=== PATIENT | male | born 1955 | race Caucasian/White ===

== ENCOUNTER 2017-01-23 21:29 | Emergency (ER) | payer BC ==
[~2017-01-23] VITALS: Ht 167.6 cm; Wt 101.0 kg
[~2017-01-23 21:29] MED LIST: ASPI81TA28 PO; LEVO75TA PO; METO-478 PO; SIMV20TA2 PO
[2017-01-23 21:38] VITALS: Ht 167.6 cm; Wt 101.0 kg
[2017-01-23] MEDS ORDERED: MoRPHine SULFATE 4 MG/ML 1 ML CARP\\VIAL IV STA (21:38)
[2017-01-23] MEDS ORDERED: ONDANSETRON INJ 2 MG/ML 2 ML VIAL IV STA (21:38)
[2017-01-23] MEDS ORDERED: LEVO88TA PO (21:55)
[2017-01-23] MEDS ORDERED: METO-217 PO (21:55)
--- NOTE | 2017-01-23 21:55 | EMERGENCY ROOM VISIT NOTE ---
History Report prepared by Susanneibpadmini: Amado Alvarado Under the Supervision of: Dr. James Santoyo D.O. First contact with patient: 21:32 Chief Complaint: ARM PAIN Stated Complaint: L ARM PAIN History of Present Illness The patient is a 61 year old male who presents to the Emergency Room with complaints of constant left arm pain that began this afternoon at 1630, 5 hours prior to arrival. He describes the sensation as a sharp, shooting pain. The patient states that he was playing golf when the pain began. Per the nursing staff the patient had been drinking vodka while golfing and appeared to have become incontinent and urinated on himself. The patient's pain is worsened with movement, abduction of the shoulder. He denies any associated pain in the chest , neck or abdomen. He has no history of cardiac illness, or shoulder complications. The patient received Aspiring via EMS prior to arrival. Further HPI from the patient's friend reveals that he found the patient on the ground by the car after he had fallen. 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 A total of ten systems were reviewed and were otherwise negative. Past Medical & Surgical Medical Problems: (1) Hypertension (2) Kidney stone Family History FHx: heart disease Hypertension Social History Smoking Status: Never Smoker Alcohol Use: occasionally Marital Status: Housing Status: lives with significant other Current/Historical Medications Scheduled Aspirin (Aspirin Ec), 81 MG PO DAILY Levothyroxine Sodium (Synthroid), 88 MCG PO DAILY Metoprolol Succinate (Toprol Xl), 50 MG PO DAILY Simvastatin (Zocor), 20 MG PO QPM Allergies Coded Allergies: No Known Allergies (Unverified , 01/23/17) Physical Exam Vital Signs Date Time Temp Pulse Resp B/P (MAP) Pulse Ox O2 Delivery O2 Flow Rate FiO2 01/23/17 23:51 84 18 141/102 98 Nasal Cannula 6.0 01/23/17 23:51 36.7 81 20 145/92 97 Room Air 01/23/17 23:51 36.6 77 18 127/93 98 Room Air 01/23/17 23:21 93 Nasal Cannula 3.0 01/23/17 22:25 100 Room Air 01/23/17 21:57 78 01/23/17 21:38 36.9 77 18 141/102 97 Room Air Physical Exam GENERAL: Awake, alert, Patient is Moaning in pain. HENT: Normocephalic, atraumatic. Oropharynx unremarkable. Poor Dentition EYES: Normal conjunctiva. Sclera non-icteric. NECK: Supple. No nuchal rigidity. FROM. No JVD. RESPIRATORY: Clear to auscultation. CARDIAC: Regular rate, normal rhythm. Extremities warm and well perfused. Pulses equal. ABDOMEN: Soft, non-distended. No tenderness to palpation. No rebound or guarding. No masses. RECTAL: Deferred. MUSCULOSKELETAL: There is tenderness in the left shoulder. There is pain with abduction and palpation of the shoulder. No tenderness of the humerus or forearm. Patient is intact vascularly. Chest examination reveals no tenderness. The back is symmetrical on inspection without obvious abnormality. There is no CVA tenderness to palpation. No joint edema. LOWER EXTREMITIES: Calves are equal size bilaterally and non-tender. No edema. No discoloration. NEURO: Normal sensorium. No sensory or motor deficits noted. SKIN: No rash or jaundice noted. Medical Decision & Procedures ER Provider Diagnostic Interpretation: X ray results as stated below per my interpretation and radiologist interpretation. Other radiology results as stated below per my review and radiologist interpretation SINGLE VIEW CHEST CLINICAL HISTORY: Atypical chest pain. FINDINGS: An AP, portable, upright chest radiograph is compared to study dated 01/29/2013. The cardiomediastinal silhouette is unremarkable. There are low lung volumes with mild bibasilar opacities. No large pleural effusion or pneumothorax is seen. The bony thorax is grossly intact. Anterior left shoulder dislocation is noted. IMPRESSION: 1. There are low lung volumes with mild bibasilar opacities. This likely represents atelectasis. Clinical correlation will be required. 2. There is anterior dislocation of the left shoulder. Electronically signed by: Dmitry Saldaña M.D. 01/23/2017 10:53 PM Dictated Date/Time: 01/23/2017 10:52 PM LEFT SHOULDER 2 VIEWS CLINICAL HISTORY: Left shoulder pain. FINDINGS: 2 portable views of the left shoulder are obtained. No prior studies are available for comparison at the time of dictation. The skeletal structures are well mineralized. No fracture is clearly seen. There is anterior dislocation of the left shoulder. Mild productive degenerative change is noted at the acromioclavicular joint. Mild overlying soft tissue swelling is noted. The visualized left lung parenchyma appears clear. IMPRESSION: Findings are consistent with anterior dislocation of the left shoulder. No definite fracture is seen. Electronically signed by: Dmitry Saldaña M.D. 01/23/2017 10:54 PM Dictated Date/Time: 01/23/2017 10:53 PM Laboratory Results 01/23/17 21:15 Red Blood Count 4.81, Mean Corpuscular Volume 92.7, Mean Corpuscular Hemoglobin 31.8, Mean Corpuscular Hemoglobin Concent 34.3, Mean Platelet Volume 10.1, Neutrophils (%) (Auto) 88.7, Lymphocytes (%) (Auto) 6.1, Monocytes (%) (Auto) 4.5, Eosinophils (%) (Auto) 0.2, Basophils (%) (Auto) 0.1, Neutrophils # (Auto) 15.77, Lymphocytes # (Auto) 1.08, Monocytes # (Auto) 0.80, Eosinophils # (Auto) 0.04, Basophils # (Auto) 0.02 01/23/17 21:15 Test 01/23/17 21:15 01/23/17 21:52 White Blood Count 17.78 K/uL (4.8-10.8) Red Blood Count 4.81 M/uL (4.7-6.1) Hemoglobin 15.3 g/dL (14.0-18.0) Hematocrit 44.6 % (42-52) Mean Corpuscular Volume 92.7 fL (80-100) Mean Corpuscular Hemoglobin 31.8 pg (25-34) Mean Corpuscular Hemoglobin Concent 34.3 g/dl (32-36) Platelet Count 226 K/uL (130-400) Mean Platelet Volume 10.1 fL (7.4-10.4) Neutrophils (%) (Auto) 88.7 % Lymphocytes (%) (Auto) 6.1 % Monocytes (%) (Auto) 4.5 % Eosinophils (%) (Auto) 0.2 % Basophils (%) (Auto) 0.1 % Neutrophils # (Auto) 15.77 K/uL (1.4-6.5) Lymphocytes # (Auto) 1.08 K/uL (1.2-3.4) Monocytes # (Auto) 0.80 K/uL (0.11-0.59) Eosinophils # (Auto) 0.04 K/uL (0-0.5) Basophils # (Auto) 0.02 K/uL (0-0.2) RDW Standard Deviation 42.3 fL (36.4-46.3) RDW Coefficient of Variation 12.5 % (11.5-14.5) Immature Granulocyte % (Auto) 0.4 % Immature Granulocyte # (Auto) 0.07 K/uL (0.00-0.02) Anion Gap 8.0 mmol/L (3-11) Est Creatinine Clear Calc Drug Dose 89.7 ml/min Estimated GFR () 99.0 Estimated GFR (Non- 85.4 BUN/Creatinine Ratio 12.6 (10-20) Calcium Level 8.8 mg/dl (8.5-10.1) Total Bilirubin 0.3 mg/dl (0.2-1) Direct Bilirubin < 0.1 mg/dl (0-0.2) Aspartate Amino Transf (AST/SGOT) 26 U/L (15-37) Alanine Aminotransferase (ALT/SGPT) 36 U/L (12-78) Alkaline Phosphatase 68 U/L (45-117) Total Protein 7.8 gm/dl (6.4-8.2) Albumin 4.2 gm/dl (3.4-5.0) Bedside Troponin I < 0.030 ng/ml (0-0.045) Laboratory results reviewed by me Medications Administered Medications (Trade) Dose Ordered Sig/Diamante Route Start Time Stop Time Status Last Admin Dose Admin Morphine Sulfate (MoRPHine SULFATE INJ) 4 mg NOW STAT IV 01/23/17 21:38 01/23/17 21:41 DC 01/23/17 22:24 4 MG Ondansetron HCl (Zofran Inj) 4 mg NOW STAT IV 01/23/17 21:38 01/23/17 21:41 DC 01/23/17 22:24 4 MG Fentanyl Citrate (Fentanyl Inj) 50 mcg NOW ONCE IV 01/23/17 23:15 01/23/17 23:16 DC 01/23/17 23:46 50 MCG Etomidate (Amidate Inj) 10 mg NOW ONCE IV 01/23/17 23:30 01/23/17 23:31 DC 01/23/17 23:47 10 MG Procedure Procedural Sedation Indication Shoulder Dislocation. Total time: 5 minutes. Written consent was obtained after the risks and benefits were explained to the patient, including, but not limited to aspiration, allergic reaction, breathing difficulties, cardiac complications, vomiting, pain, event recall, bleeding, and /or infection. Pre-sedation examination and paperwork completed. The patient was on 100% oxygen via NRB prior to the procedure. Continuos end tidal CO2 monitoring, pulse oximetry, and cardiac monitoring were utilized. Suction, airway equipment, medications, respiratory equipment, and appropriate personnel were prepared prior to the initiation of the procedure. A time out was taken. Sedation was achieved utilizing 10 mg of Etomidate. After I observed the patient had reached the appropriate level of sedation the main procedure was performed without complication. Sedation was discontinued and the monitoring continued. The patient recovered quickly from the effects of the medication without complication or adverse event. Patient's last solid meal was 10.5 hours prior to procedure. Anterior Shoulder Dislocation Reduction Indication: Dislocation Left Shoulder Verbal consent obtained. Risks and benefits were explained with the usual customary discussion. A time out was taken. Neurovascular examination before the procedure revealed intact. The left shoulder glenohumeral dislocation was reduced by placing the patient prone and applying gentle downward inline traction on the humerus, with the elbow flexed at 90 degrees, while scapula manipulation was applied. This resulted in an easy reduction without complication. Neurovascular examination after the procedure revealed intact. The patient had significant pain relief and tolerated the procedure well. ECG Indication: other (Left Arm Pain ) Rate (beats per minute): 72 Rhythm: normal sinus Findings: no acute ischemic change, other (Normal [place], normal Intervals) ED Course 2133: The patient was evaluated in room B6. A complete history and physical exam was performed. 2137: Zofran 4 mg IV, Morphine Sulfate 4 mg . 2314: Ordered Fentanyl Citrate 50 mcg IV. 2329: Etomidate 10 mg IV. 2332: I had nursing staff push 10 mg Etomidate at this time to sedate the patient. I reduced the shoulder successfully. Medical Decision Differential diagnosis includes; Sprain, strain, cardiac event, rotator cuff injury, and fracture. Patient was found to have an anterior shoulder dislocation after x-ray revealed anterior shoulder dislocation as well as reevaluation of patient when he was undressed. I do not suspect cardiac event. Patient had been drinking alcohol I do not suspect syncope there is no head trauma. Patient's last meal was 10.5 hours prior to procedure. Patient did consent for procedure, timeout was performed. Please see the procedure note. Patient tolerated procedure well. A 12:07 AM the patient is back to baseline in no distress with a sling to the left upper extremity Blood Pressure Screening Patient's blood pressure: Elevated blood pressure Blood pressure disposition: Elevated BP felt to be situational Impression Primary Impression: Dislocation of left shoulder joint Additional Impression: Arm pain, left Scribe Attestation The scribe's documentation has been prepared under my direction and personally reviewed by me in its entirety. I confirm that the note above accurately reflects all work, treatment, procedures, and medical decision making performed by me. Departure Information Dispostion Home / Self-Care Referrals Moon Burk MD (PCP) Patient Instructions ED Dislocation Shoulder Redu, ED Sedation Procedural Discon, My [facility] Additional Instructions Follow-up primary care physician one to 2 days. Avoid alcohol. Use sling until feeling better. Take Motrin for pain Problem Qualifiers
[2017-01-23 22:02] LABS: BASO % 0.1 %; BASO ABS # 0.02 K/uL (0-0.2); COMPLETE YES; EOS % 0.2 %; HEMATOCRIT 44.6 % (42-52); IG% 0.4 %; LYMPH % 6.1 %; LYMPH ABS # 1.08 K/uL (1.2-3.4); MEAN CELL VOLUME 92.7 fL (80-100); MEAN CORPUSCULAR HEMOGLOBIN 31.8 pg (25-34); MEAN CORPUSCULAR HGB CONC 34.3 g/dl (32-36); MEAN PLATELET VOLUME 10.1 fL (7.4-10.4); MONO % 4.5 %; NEUT % 88.7 %; PLATELET COUNT 226 K/uL (130-400); RED BLOOD COUNT 4.81 M/uL (4.7-6.1); WHITE BLOOD COUNT 17.78 K/uL (4.8-10.8)
[2017-01-23 22:26] LABS: ALT/SGPT 36 U/L (12-78); AST/SGOT 26 U/L (15-37); BLOOD UREA NITROGEN 12 mg/dl (7-18); BUN/CREATININE RATIO 12.6 (10-20); CALCIUM 8.8 mg/dl (8.5-10.1); CARBON DIOXIDE 28 mmol/L (21-32); CHLORIDE 100 mmol/L (98-107); CREATININE 0.95 mg/dl (0.60-1.40); GLUCOSE 113 mg/dl (70-99); POTASSIUM 3.5 mmol/L (3.5-5.1); SODIUM 136 mmol/L (136-145)
[2017-01-23 22:30] LABS: ALKALINE PHOSPHATASE 68 U/L (45-117)
--- NOTE | 2017-01-23 22:54 | DIAGNOSTIC IMAGING REPORT ---
SINGLE VIEW CHEST CLINICAL HISTORY: Atypical chest pain. FINDINGS: An AP, portable, upright chest radiograph is compared to study dated 01/29/2013. The cardiomediastinal silhouette is unremarkable. There are low lung volumes with mild bibasilar opacities. No large pleural effusion or pneumothorax is seen. The bony thorax is grossly intact. Anterior left shoulder dislocation is noted. IMPRESSION: 1. There are low lung volumes with mild bibasilar opacities. This likely represents atelectasis. Clinical correlation will be required. 2. There is anterior dislocation of the left shoulder. Electronically signed by: Dmitry Saldaña M.D. 01/23/2017 10:53 PM Dictated Date/Time: 01/23/2017 10:52 PM
--- NOTE | 2017-01-23 22:55 | DIAGNOSTIC IMAGING REPORT ---
LEFT SHOULDER 2 VIEWS CLINICAL HISTORY: Left shoulder pain. FINDINGS: 2 portable views of the left shoulder are obtained. No prior studies are available for comparison at the time of dictation. The skeletal structures are well mineralized. No fracture is clearly seen. There is anterior dislocation of the left shoulder. Mild productive degenerative change is noted at the acromioclavicular joint. Mild overlying soft tissue swelling is noted. The visualized left lung parenchyma appears clear. IMPRESSION: Findings are consistent with anterior dislocation of the left shoulder. No definite fracture is seen. Electronically signed by: Dmitry Saldaña M.D. 01/23/2017 10:54 PM Dictated Date/Time: 01/23/2017 10:53 PM
[2017-01-23] MEDS ORDERED: FENTANYL CITRATE INJ 50 MCG/1 ML 2 ML VIAL IV ONE (23:15)
[2017-01-23] MEDS ORDERED: ETOMIDATE 2 MG/ML 20 ML VIAL IV ONE (23:30)
[2017-01-23 23:51] VITALS: BP_SYST 127; BP_SYST 141; BP_SYST 145; BP_DIAS 102; BP_DIAS 92; BP_DIAS 93; PULSE 77; PULSE 81; PULSE 84; TEMP 36.6; TEMP 36.7; O2SAT 97; O2SAT 98
[2017-01-23 23:57] VITALS: PULSE 79; O2SAT 99
[2017-01-24 00:15] VITALS: BP 139/83
--- NOTE | 2017-01-24 06:59 | DIAGNOSTIC IMAGING REPORT ---
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 No evidence of bony Bankart. Improved alignment status post reduction. No opaque foreign body. IMPRESSION: 1. Satisfactory alignment status post reduction. 2. Suggested small Hill Sachs deformity without evidence of a bony Bankart injury. The above report was generated using voice recognition software. It may contain grammatical, syntax or spelling errors. Electronically signed by: Rory Rodriguez M.D. 01/24/2017 6:58 AM Dictated Date/Time: 01/24/2017 6:56 AM
== END 2017-01-24 00:43 | disposition home or self-care (01) ==
LOC: EDBD 21:29 → C.EDB 21:30
DX: S43.005A Unspecified dislocation of left shoulder joint, initial encounter (principal); W19.XXXA Unspecified fall, initial encounter; Y93.53 Activity, golf; Y92.39 Other specified sports and athletic area as the place of occurrence of the external cause; I10 Essential (primary) hypertension; Z79.82 Long term (current) use of aspirin; Z87.442 Personal history of urinary calculi; Z82.49 Family history of ischemic heart disease and other diseases of the circulatory system

== ENCOUNTER → 2017-02-16 | Outpatient (CLI) | payer BC ==
[~2017-02-16] MED LIST changes: +KETO10TA PO; +KPP/1000 PO; +LEVE500T13 PO; -LEVO75TA PO; +LEVO88TA PO; +METO-217 PO; -METO-478 PO; +METO50TA16 PO; +OXYC-57 PO; +TYLOTC500 PO
[2017-02-16 17:27] LABS: BASO % 0.5 %; BASO ABS # 0.04 K/uL (0-0.2); EOS % 1.5 %; EOS ABS # 0.13 K/uL (0-0.5); HEMATOCRIT 41.9 % (42-52); HEMOGLOBIN 14.7 g/dL (14.0-18.0); IG# 0.01 K/uL (0.00-0.02); LYMPH % 15.3 %; LYMPH ABS # 1.32 K/uL (1.2-3.4); MEAN CELL VOLUME 93.3 fL (80-100); MEAN CORPUSCULAR HEMOGLOBIN 32.7 pg (25-34); MEAN CORPUSCULAR HGB CONC 35.1 g/dl (32-36); MEAN PLATELET VOLUME 9.9 fL (7.4-10.4); MONO % 6.7 %; MONO ABS # 0.58 K/uL (0.11-0.59); NEUT % 75.9 %; NEUT ABS # 6.57 K/uL (1.4-6.5); PLATELET COUNT 266 K/uL (130-400); RED CELL DISTRIBUTION WIDTH CV 12.8 % (11.5-14.5); RED CELL DISTRIBUTION WIDTH SD 43.7 fL (36.4-46.3); WHITE BLOOD COUNT 8.65 K/uL (4.8-10.8)
[2017-02-16 17:48] LABS: BLOOD UREA NITROGEN 14 mg/dl (7-18); CALCIUM 9.2 mg/dl (8.5-10.1); CARBON DIOXIDE 30 mmol/L (21-32); CREATININE 0.92 mg/dl (0.60-1.40); GLUCOSE 88 mg/dl (70-99); SODIUM 139 mmol/L (136-145)
== END | disposition home or self-care (01) ==
LOC: C.CPL 16:38
PROVIDERS: ATTEND Orthopaedic Surgery
DX: M75.122 Complete rotator cuff tear or rupture of left shoulder, not specified as traumatic (principal)

== ENCOUNTER → 2017-02-24 | Day surgery (SDC) | payer OTHER ==
[2017-02-22 08:56] VITALS: Ht 167.6 cm; Wt 88.6 kg
[~2017-02-24] VITALS: Ht 167.6 cm; Wt 88.6 kg
[~2017-02-24] MED LIST changes: +ATROPINE SULFATE 0.1 MG/ML 5ML SYR IV PRN; +BUPIVACAINE/EPINEPHRINE 0.25% 1:200,000 30 ML VIAL ONE; +CEFAZOLIN 2000MG IV PUSH 10 ML IV SCH; +DEXAMETHASONE SOD INJ 4 MG/ML VIAL ONE; +ESMOLOL HCL 10 MG/ML 10 ML VIAL ONE; +EpHEDrine SULFATE INJ 50 MG/ML AMP IV PRN; +EpHEDrine SULFATE INJ 50 MG/ML AMP ONE; +EpINEphrine INJ 1MG/ML AMP 1 MG/ML AMP ONE; +FENTANYL CITRATE INJ 50 MCG/1 ML 2 ML VIAL ONE; +GLYCOPYRROLATE INJ 0.2 MG/ML VIAL ONE; +HYDROmorphone INJ 1 MG/ML SYR IV PRN; +KETOROLAC TROMETHAMINE 30 MG/ML VIAL IV. PRN; -KPP/1000 PO; +LACTATED RINGER'S 1000ML 1,000 ML IV SCH; -LEVE500T13 PO; +LIDOCAINE HCL 2% 2 ML VIAL (20MG/ML) ONE; -METO50TA16 PO; +MIDAZOLAM HCL 1 MG/ML 2ML VIAL ONE; +NEOSTIGMINE METHYLSULFATE 5 MG/5 ML SYR ONE; +ONDANSETRON INJ 2 MG/ML 2 ML VIAL IV PRN; +ONDANSETRON INJ 2 MG/ML 2 ML VIAL ONE; +OXYCODONE/ACETAMINOPHEN 5-325 TAB PO PRN; +PROPOFOL IV EMULSION 10 MG/ML 20 ML VIAL IV ONE; +ROPIVACAINE 0.5% 5 MG/ML 30 ML VIAL ONE; +SODIUM CHLORIDE 0.9% 1000ML 1,000 ML IV SCH
--- NOTE | 2017-02-24 11:36 | History & Physical Bridge Note ---
H&P Re-Evaluation Bridge Note: I have examined the patient, reviewed the History & Physical and in the interval since the performance of the History & Physical I have noted the following changes of clinical significance: No changes noted
--- NOTE | 2017-02-24 16:10 | [facility] Post Operative Brief Note ---
Immediate Operative Summary Operative Date Feb 24, 2017. Pre-Operative Diagnosis Left Shoulder Full Thickness Rotator Cuff Repair Post-Operative Diagnosis same Procedure(s) Performed Left Shoulder Arthroscopic Massive Rotator Cuff Repair, Acromioplasty, Biceps Tenotomy Surgeon Dr Osborne Vault Keeper Surgeon(s) WYATT Monae Estimated Blood Loss 5 ML Findings as above Specimens none Complication(s) None Disposition Recovery Room / PACU
--- NOTE | 2017-02-24 16:31 | Discharge Instructions-SurgCtr ---
Discharge Instructions Date of Service Feb 24, 2017. Visit Reason for Visit: Left Shoulder Full Thickness Rotator Cuff Tear Discharge Discharge Diagnosis / Problem: SAME ABOVE Discharge Goals Goal(s): Decrease discomfort, Improve function Medications Stopped Medications Name(s): ASA stopped 10 days ago Activity Recommendations Activity Limitations: as noted below Lifting Limitations: until after follow-up appointment Exercise/Sports Limitations: until after follow-up appointment Shower/Bathe: tomorrow Anesthesia . Post Anesthesia Instructions: If you have had General Anesthesia or IV Sedation: * Do not drive today. * Resume driving when surgeon permits. * Do not make important decisions or sign legal documents today. * Call surgeon for: 1. Temperature elevations greater than 101 degrees F. 2. Uncontrollable pain. 3. Excessive bleeding. 4. Persistent nausea and vomiting. 5. Medication intolerance (nausea, vomiting or rash). * For nausea and vomiting use only clear liquids such as: tea, soda, bouillon until nausea subsides, then gradually increase diet as tolerated. * If you have any concerns or questions, call your surgeon's office. If physician is unavailable and it is an emergency, call 911 or go to the nearest emergency room. . Instructions / Follow-Up Instructions / Follow-Up MEDICATIONS: * Resume previous medications unless instructed otherwise by your surgeon. * Always take pain medication on a full stomach or with food to avoid upset stomach. * Do not drink alcohol or drive while taking narcotics. * Ibuprofen or Tylenol may be taken if narcotic not needed. SPECIAL CARE INSTRUCTIONS: __ None _X_ Keep extremity elevated and iced x 48 hours; apply ice 20-30 minutes 8-10 times/day. May remove at night. __ Sling __24 hrs/day __ Remove at night _X_ Shoulder Immobilizer (MAY REMOVE AFTER 48 HOURS ONLY TO SHOWER) _X_ 24 hrs/day __ Remove at night _X_ Dressing __ Maintain until seen in office, may shower with plastic over site _X_ Remove dressings in 24-48 hours and then may shower _X_ Cover incisions with band-aids after showering __ Do not remove steri-strips Call physician if chills or temperature rises above 102 degrees or pain unrelieved by prescribed pain medications at . . Diet Recommendations Home Diet: no limitations Fluid Restriction: None Procedures Procedures Performed: Left Shoulder Arthroscopic Massive Rotator Cuff Repair, Acromioplasty, Biceps Tenotomy Pending Studies Studies pending at discharge: no Work Instructions Return To Work: after follow-up Lifting Limitations: NO LIFTING WITH LEFT ARM Medical Emergencies . Who to Call and When: Medical Emergencies: If at any time you feel your situation is an emergency, please call 911 immediately. . Non-Emergent Contact Non-Emergency issues call your: Primary Care Provider Call Non-Emergent contact if: you have a fever, temperature is above 101.5 . . "Provider Documentation" section prepared by Nikita Gupta. .
--- NOTE | 2017-02-24 16:39 | OPERATIVE REPORT ---
DATE OF OPERATION: 02/24/2017 PREOPERATIVE DIAGNOSIS: Massive left rotator cuff tear. POSTOPERATIVE DIAGNOSIS: Same. PROCEDURE: Left shoulder diagnostic arthroscopy with extensive debridement, acromioplasty, massive rotator cuff repair including the teres minor, infraspinatus, supraspinatus entire subscapularis and biceps tenotomy. SURGEON: Dr. Edmundo Osborne. TRANSMISSION MAINTENANCE SUPERVISOR: Kenny Gupta PA-C, whose assistance was necessary for positioning the arm and helping with arthroscopic instrumentation. ANESTHESIA: General with left interscalene nerve block. COMPLICATIONS: None. CONDITION: Stable to PACU. This case took increased time about 3 times as long as normal rotator cuff just given the size. I had to repair the all 4 tendons of the rotator cuff including multiple extra portals for visualization. INDICATIONS: Darshan is a pleasant 61-year-old male who tripped and fell on a curb directly on his right shoulder. He sustained a shoulder dislocation about a month ago. He was reduced, unfortunately had severe weakness in his shoulder. MRI showed a massive rotator cuff tear. He elected to undergo arthroscopy. DESCRIPTION OF PROCEDURE: On 02/24/2017, he arrived at [facility] for the above procedure. He was seen in the preoperative holding area and the operative extremity was identified and signed. He was given a preoperative antibiotic and a left interscalene nerve block. He was taken back to the operating room, laid on the table in supine position and put under general anesthesia. He was then put into the beachchair position. The left shoulder was prepped and draped in sterile fashion. Time-out was done and the patient and operative extremity was properly identified. A scope was introduced in the posterior portal. Diagnostic arthroscopy showed no cartilage damage to the humeral head or the glenoid. There was a tear of the entire supraspinatus, infraspinatus and teres minor. The entire subscapularis was also torn. The biceps tendon was subluxated medially. The scope was then put into the subacromial space. A lateral portal was made. A shaver was used to do a complete subacromial and subdeltoid bursectomy. An additional anterolateral portal was made and an additional posterolateral portal was made. A cuff grasper was used and determined that the cough was repairable. Jennifer cannulas were placed in each of the 3 lateral portals. The biceps tendon was then arthroscopically tenotomized. The greater tuberosity and lesser tuberosity were prepared with a ring curette and a microfracture. The supraspinatus, infraspinatus and teres minor were fixed with an Arthrex suspension bridge configuration using 4 medial row 4.75 mm BioComposite SwiveLock suture anchors loaded with tapes. The tapes were brought through the tendon at the anticipator articular margin and brought down due to 1 of 4 lateral row SwiveLock suture anchors. This gave a nice knotless repair. The medial row stay sutures were then tied across anchor to each other to hold down the medial row. Attention was turned to the subscapularis. This was fixed with an Arthrex SpeedBridge configuration using two 4.75 mm BioComposite SwiveLock suture anchors on the medial row and the FiberTapes were passed through the tendon at the anticipator articular margin and brought down to 1 of 2 lateral row SwiveLock suture anchors. This gave a nice knotless SpeedBridge repair. The medial stay sutures were tied across anchor to each other to hold down the medial row. I was happy with the overall repair. There was not much tension on the tissue quality was fair, but not excellent. I was able to coverage most of the footprint. The coracoacromial ligament was then teased off the undersurface of the acromion a little bit and a 5-0 magda was used to complete an acromioplasty of a Bigliani type 3 acromion. A shaver was used to remove any excess debris and final arthroscopic images were taken to show the complete repair. Arthroscopic instruments removed from the shoulder. Portal sites were closed with 3-0 nylon. He was then placed in a soft dressing and an abduction arm sling. He was then extubated, transferred to a [facility] and taken to the postanesthesia care unit in stable condition. He tolerated the procedure well. I attest to the content of the Intraoperative Record and any orders documented therein. Any exception s are noted below.
--- NOTE | 2017-02-24 17:17 | Anesthesia Progress Nt - [facility] ---
Anesthesia Post Op Note Date & Time Feb 24, 2017 at 17:14 Vital Signs Pain Intensity: 3 Vital Signs Past 12 Hours Date Time Temp Pulse Resp B/P (MAP) Pulse Ox O2 Delivery O2 Flow Rate FiO2 02/24/17 17:06 75 22 151/89 100 02/24/17 17:06 75 22 02/24/17 17:01 36.6 59 16 135/99 100 Room Air 02/24/17 17:01 66 17 135/99 100 02/24/17 17:01 66 17 02/24/17 16:56 67 20 02/24/17 16:56 67 20 146/96 99 02/24/17 16:51 62 19 146/88 100 02/24/17 16:51 68 19 02/24/17 16:46 65 15 02/24/17 16:46 64 15 135/87 100 02/24/17 16:41 65 14 02/24/17 16:41 64 14 141/95 100 02/24/17 16:36 61 17 133/89 99 02/24/17 16:36 65 17 02/24/17 16:31 71 22 143/94 100 02/24/17 16:31 70 22 02/24/17 16:31 36.0 70 12 143/94 100 Diffusion Mask 6 02/24/17 12:50 75 02/24/17 12:50 74 19 99 02/24/17 12:46 111/77 02/24/17 12:45 73 10 96 02/24/17 12:45 71 02/24/17 12:40 75 30 133/87 99 02/24/17 12:40 75 02/24/17 12:36 124/86 02/24/17 12:35 72 02/24/17 12:35 73 11 99 02/24/17 12:30 73 02/24/17 12:30 74 5 156/101 99 02/24/17 12:29 140/85 02/24/17 11:12 36.6 83 16 157/109 (125) 96 Room Air Notes Mental Status: alert / awake / arousable, participated in evaluation Pt Amnestic to Procedure: Yes Nausea / Vomiting: adequately controlled Pain: adequately controlled Airway Patency, RR, SpO2: stable & adequate BP & HR: stable & adequate Hydration State: stable & adequate Anesthetic Complications: no major complications apparent The patient had a brief period in the PACU where he was having frequent PVCs, primarily unifocal with occasional multifocal PVCs. After fifteen or twenty minutes they calmed down to occasional unifocal PVCs which I did not feel warranted treatment. He was otherwise stable.
[2017-02-24 17:46] VITALS: BP 134/80; PULSE 72; TEMP 36.7; O2SAT 97
== END | disposition home or self-care (01) ==
LOC: X.SURG 11:03
PROVIDERS: ATTEND Orthopaedic Surgery
DX: S46.012A Strain of muscle(s) and tendon(s) of the rotator cuff of left shoulder, initial encounter (principal); W01.198A Fall on same level from slipping, tripping and stumbling with subsequent striking against other object, initial encounter; I10 Essential (primary) hypertension; E78.5 Hyperlipidemia, unspecified; E66.9 Obesity, unspecified; Z85.46 Personal history of malignant neoplasm of prostate

== ENCOUNTER → 2017-03-16 | Outpatient (CLI) | payer OTHER ==
[~2017-03-16] MED LIST changes: -ATROPINE SULFATE 0.1 MG/ML 5ML SYR IV PRN; -BUPIVACAINE/EPINEPHRINE 0.25% 1:200,000 30 ML VIAL ONE; -CEFAZOLIN 2000MG IV PUSH 10 ML IV SCH; -DEXAMETHASONE SOD INJ 4 MG/ML VIAL ONE; -ESMOLOL HCL 10 MG/ML 10 ML VIAL ONE; -EpHEDrine SULFATE INJ 50 MG/ML AMP IV PRN; -EpHEDrine SULFATE INJ 50 MG/ML AMP ONE; -EpINEphrine INJ 1MG/ML AMP 1 MG/ML AMP ONE; -FENTANYL CITRATE INJ 50 MCG/1 ML 2 ML VIAL ONE; -GLYCOPYRROLATE INJ 0.2 MG/ML VIAL ONE; -HYDROmorphone INJ 1 MG/ML SYR IV PRN; -KETOROLAC TROMETHAMINE 30 MG/ML VIAL IV. PRN; -LACTATED RINGER'S 1000ML 1,000 ML IV SCH; -LIDOCAINE HCL 2% 2 ML VIAL (20MG/ML) ONE; -MIDAZOLAM HCL 1 MG/ML 2ML VIAL ONE; -NEOSTIGMINE METHYLSULFATE 5 MG/5 ML SYR ONE; -ONDANSETRON INJ 2 MG/ML 2 ML VIAL IV PRN; -ONDANSETRON INJ 2 MG/ML 2 ML VIAL ONE; -OXYCODONE/ACETAMINOPHEN 5-325 TAB PO PRN; -PROPOFOL IV EMULSION 10 MG/ML 20 ML VIAL IV ONE; -ROPIVACAINE 0.5% 5 MG/ML 30 ML VIAL ONE; -SODIUM CHLORIDE 0.9% 1000ML 1,000 ML IV SCH
[2017-03-16 14:42] LABS: BASO % 0.2 %; BASO ABS # 0.02 K/uL (0-0.2); EOS % 1.3 %; EOS ABS # 0.13 K/uL (0-0.5); HEMATOCRIT 39.1 % (42-52); IG# 0.03 K/uL (0.00-0.02); LYMPH % 9.6 %; LYMPH ABS # 0.97 K/uL (1.2-3.4); MEAN CELL VOLUME 93.3 fL (80-100); MEAN CORPUSCULAR HGB CONC 33.2 g/dl (32-36); MEAN PLATELET VOLUME 10.4 fL (7.4-10.4); MONO % 9.4 %; MONO ABS # 0.95 K/uL (0.11-0.59); NEUT % 79.2 %; NEUT ABS # 8.04 K/uL (1.4-6.5); PLATELET COUNT 347 K/uL (130-400); RED CELL DISTRIBUTION WIDTH CV 12.8 % (11.5-14.5); RED CELL DISTRIBUTION WIDTH SD 43.9 fL (36.4-46.3); WHITE BLOOD COUNT 10.14 K/uL (4.8-10.8)
[2017-03-16 14:51] LABS: BLOOD UREA NITROGEN 12 mg/dl (7-18); CALCIUM 9.8 mg/dl (8.5-10.1); CARBON DIOXIDE 28 mmol/L (21-32); CREATININE 0.95 mg/dl (0.60-1.40); GLUCOSE 100 mg/dl (70-99); SODIUM 137 mmol/L (136-145)
[2017-03-17 01:43] LABS: RAPID PLASMA REAGIN NONREACTIVE (NONREACT)
== END | disposition home or self-care (01) ==
LOC: C.LAB 13:20
PROVIDERS: ATTEND Nurse Practitioner Adult Health
DX: R41.89 Other symptoms and signs involving cognitive functions and awareness (principal); R41.82 Altered mental status, unspecified

== ENCOUNTER 2017-03-17 21:29 | Emergency (ER) | payer OTHER ==
[~2017-03-17] VITALS: Ht 167.6 cm; Wt 89.1 kg
[2017-03-17 21:33] VITALS: TEMP 37.2; Ht 167.6 cm; Wt 89.1 kg
[2017-03-17] MEDS ORDERED: LEVETIRACETAM IV 1,000 MG in DEXTROSE 5% 100ML 100 ML IV ONE (21:45)
[2017-03-17 22:00] LABS: ISTAT CREATININE 1.1 mg/dl (0.6-1.3); ISTAT IONIZED CALCIUM 1.24 mmol/l (1.12-1.32)
--- NOTE | 2017-03-17 22:04 | EMERGENCY ROOM VISIT NOTE ---
History Report prepared by [place]: Nikita Garcia Under the Supervision of: Dr. Schuyler Crenshaw M.D. First contact with patient: 21:24 Chief Complaint: REFERRED BY DOCTOR Stated Complaint: U History of Present Illness The patient is a 61 year old male who presents to the Emergency Room after abnormal findings on an outpatient MRI. The patient states he fell on January 23 playing golf, and since then, he has been experiencing weakness since then and difficulty ambulating. His family reports he started shuffling his feet 5 days ago and was evaluated by his PCP 4 days ago. They state he was told to have an outpatient MRI. His family states he takes a baby aspirin daily, but that is all for blood thinners. The patient denies difficulty speaking, vision changes, weakness, general pain, and nausea. Source of History: patient, family Onset: a month ago Position: other (global) Quality: other (weakness) Timing: constant Associated Symptoms: + headache (currently resolved), No nausea Note: Denies: difficulty speaking, vision changes, general pain Review of Systems See HPI for pertinent positives and negatives. A total of ten systems were reviewed and were otherwise negative. Past Medical & Surgical Medical Problems: (1) Hypertension (2) Kidney stone Family History FHx: heart disease Hypertension Social History Smoking Status: Never Smoker Alcohol Use: occasionally Marital Status: Housing Status: lives with significant other Current/Historical Medications Scheduled Aspirin (Aspirin Ec), 81 MG PO QAM Levothyroxine Sodium (Synthroid), 88 MCG PO QAM Metoprolol Succinate (Toprol Xl), 50 MG PO QAM Simvastatin (Zocor), 20 MG PO QPM Scheduled PRN Acetaminophen (Tylenol), 500 MG PO DAILY PRN for Pain Ketorolac Tromethamine (Toradol), 10 MG PO Q8 PRN for Pain Oxycodone/Acetaminophen 5MG/325MG (Percocet 5MG/325MG), 1-2 TABLETS PO Q6 PRN for Pain Allergies Coded Allergies: No Known Allergies (Unverified , 02/24/17) Physical Exam Vital Signs Date Time Temp Pulse Resp B/P (MAP) Pulse Ox O2 Delivery O2 Flow Rate FiO2 03/17/17 22:17 76 23 110/77 96 03/17/17 21:59 77 16 110/77 96 03/17/17 21:49 77 19 126/83 95 03/17/17 21:38 77 03/17/17 21:34 79 25 120/86 96 03/17/17 21:33 37.2 81 16 120/86 96 Room Air Physical Exam Physical Exam GENERAL: He is oriented to person, place, and time. He appears well-developed and well-nourished. He does not appear distressed. ____ HENT: Exam performed. Head: Normocephalic and atraumatic. Right Ear: External ear normal. No mastoid tenderness. Left Ear: External ear normal. No mastoid tenderness. Mouth/Throat: The oropharynx is clear and moist. No trismus in the jaw. No dental abscesses or uvula swelling. No oropharyngeal exudate or tonsillar abscesses. ____ EYES: Conjunctivae and EOM are normal. Pupils are equal, round, and reactive to light. Right eye exhibits no discharge. Left eye exhibits no discharge. No scleral icterus. ____ NECK: Normal range of motion. Neck supple. No JVD present. No spinous process tenderness present. No carotid bruit present. No rigidity. No tracheal deviation and normal range of motion present. No Brudzinski's sign and no Kernig 's sign noted. ____ CV: Normal rate, regular rhythm, normal heart sounds and intact distal pulses. There is no peripheral edema. Palpable radial pulses bue. ____ PULM/CHEST: Effort normal and breath sounds normal. No respiratory distress. No stridor. He has no wheezes. He has no rales. Chest Wall: He exhibits no tenderness. ____ ABD: The abdomen is soft. Bowel sounds are normal. He has no distension. No mass is present. There is no tenderness. There is no rebound, no guarding, no Ray's sign and no tenderness at McBurney's point. Rovsig negative LYMPH: No cervical adenopathy. ____ NEURO: He is alert and oriented to person, place, and time. He has normal strength. No cranial nerve deficit or sensory deficit. GCS eye subscore is 4. GCS verbal subscore is 5. GCS motor subscore is 6. cerebellar tests wnl. ____ SKIN: Skin is warm and dry. He is not diaphoretic. ____ Medical Decision & Procedures ER Provider Diagnostic Interpretation: Radiology results as stated below per my review and radiologist interpretation: BRAIN WITHOUT CONTRAST HISTORY: 61 years-old Male R41.82 Mental status change acute altered mental status with recent fall. COMPARISON: None available TECHNIQUE: Multiplanar multisequence MRI of the brain was obtained without contrast FINDINGS: No intraparenchymal restricted diffusion identified to suggest acute infarction. The midline structures including the corpus callosum, brainstem, optic chiasm and pituitary gland appear unremarkable the sagittal T1 series. No cerebellar tonsillar herniation. Degenerative changes of the imaged cervical spine are noted. Rightward midline shift of 11 mm from a large acute appearing left convexity subdural hematoma measuring up to 2.6 cm transversely which also causes associated significant sulcal effacement of the left cerebral hemisphere, notably within the frontal and parietal lobes. Additionally, there is a small 10 mm acute subdural hematoma layering along the right cerebral convexity. Minimal hemorrhage tracks along the falx cerebri. No definite subarachnoid or intraparenchymal hemorrhage identified. There is mild asymmetric dilation of the atria and temporal horn right lateral ventricle without mounika hydrocephalus. Suprasellar cistern appears maintained. The major flow voids at the level of the skull base appear patent. Mastoid air cells are clear. Mild mucosal thickening of the ethmoid air cells. Orbits, calvarium, scalp and soft tissues are unremarkable. IMPRESSION: 1. Large acute subdural hematoma adjacent to the left cerebral convexity measures up to 2.6 cm resulting in significant associated sulcal effacement and subfalcine herniation with 11 mm rightward midline shift. 2. Small acute subdural hematoma adjacent to the right cerebral convexity measures 1.0 cm without significant mass effect. Patient was immediately transferred from the MRI department to the emergency room and significant findings were discussed with Dr. Crenshaw on 03/17/2017 at 9:30 PM The above report was generated using voice recognition software. It may contain grammatical, syntax or spelling errors. Electronically signed by: Rory Rodriguez M.D. 03/17/2017 9:35 PM Dictated Date/Time: 03/17/2017 9:24 PM CERVICAL SPINE 2 OR 3 VIEWS HISTORY: 61 years-old Male fall sdh acute subdural hematoma status post fall. COMPARISON: Brain MRI of same day TECHNIQUE: 3 views of the cervical spine FINDINGS: There is straightening of the normal cervical lordosis. The C6 and C7 vertebral bodies are partially opacified by the patient's shoulder. Mild multilevel uncovertebral spurring and facet arthrosis. No acute cervical spine fracture or subluxation identified. No prevertebral soft tissue swelling. Imaged lung apices appear clear. IMPRESSION: No acute fracture or subluxation identified. The above report was generated using voice recognition software. It may contain grammatical, syntax or spelling errors. Electronically signed by: Rory Rodriguez M.D. 03/17/2017 10:29 PM Dictated Date/Time: 03/17/2017 10:25 PM Laboratory Results 03/17/17 21:45 Red Blood Count 4.08, Mean Corpuscular Volume 94.9, Mean Corpuscular Hemoglobin 31.6, Mean Corpuscular Hemoglobin Concent 33.3, Mean Platelet Volume 10.1, Neutrophils (%) (Auto) 72.1, Lymphocytes (%) (Auto) 16.0, Monocytes (%) (Auto) 9.7, Eosinophils (%) (Auto) 1.7, Basophils (%) (Auto) 0.2, Neutrophils # (Auto) 6.47, Lymphocytes # (Auto) 1.44, Monocytes # (Auto) 0.87, Eosinophils # (Auto) 0.15, Basophils # (Auto) 0.02 03/17/17 21:45 Test 03/17/17 21:35 03/17/17 21:45 03/17/17 21:46 Bedside Prothrombin Time INR 1.1 (0.9-1.1) White Blood Count 8.98 K/uL (4.8-10.8) Red Blood Count 4.08 M/uL (4.7-6.1) Hemoglobin 12.9 g/dL (14.0-18.0) Hematocrit 38.7 % (42-52) Mean Corpuscular Volume 94.9 fL (80-100) Mean Corpuscular Hemoglobin 31.6 pg (25-34) Mean Corpuscular Hemoglobin Concent 33.3 g/dl (32-36) Platelet Count 340 K/uL (130-400) Mean Platelet Volume 10.1 fL (7.4-10.4) Neutrophils (%) (Auto) 72.1 % Lymphocytes (%) (Auto) 16.0 % Monocytes (%) (Auto) 9.7 % Eosinophils (%) (Auto) 1.7 % Basophils (%) (Auto) 0.2 % Neutrophils # (Auto) 6.47 K/uL (1.4-6.5) Lymphocytes # (Auto) 1.44 K/uL (1.2-3.4) Monocytes # (Auto) 0.87 K/uL (0.11-0.59) Eosinophils # (Auto) 0.15 K/uL (0-0.5) Basophils # (Auto) 0.02 K/uL (0-0.2) RDW Standard Deviation 44.6 fL (36.4-46.3) RDW Coefficient of Variation 12.9 % (11.5-14.5) Immature Granulocyte % (Auto) 0.3 % Immature Granulocyte # (Auto) 0.03 K/uL (0.00-0.02) Prothrombin Time 10.7 SECONDS (9.0-12.0) Prothromb Time International Ratio 1.0 (0.9-1.1) Activated Partial Thromboplast Time 28.0 SECONDS (21.0-31.0) Partial Thromboplastin Ratio 1.1 Est Creatinine Clear Calc Drug Dose 75.5 ml/min Estimated GFR () 86.8 Estimated GFR (Non- 74.8 BUN/Creatinine Ratio 18.3 (10-20) Calcium Level 9.5 mg/dl (8.5-10.1) Total Bilirubin 0.4 mg/dl (0.2-1) Aspartate Amino Transf (AST/SGOT) 14 U/L (15-37) Alanine Aminotransferase (ALT/SGPT) 26 U/L (12-78) Alkaline Phosphatase 99 U/L (45-117) Total Protein 7.7 gm/dl (6.4-8.2) Albumin 3.5 gm/dl (3.4-5.0) Globulin 4.2 gm/dl (2.5-4.0) Albumin/Globulin Ratio 0.8 (0.9-2) Bedside Hemoglobin 12.6 g/dl (14.0-18.0) Bedside Hematocrit 37 % (42-52) Bedside Sodium 142 mEq/L (135-144) Bedside Potassium 4.0 mEq/L (3.3-5.0) Bedside Chloride 100 mEq/L (101-112) Bedside Total CO2 28 mEq/l (24-31) Anion Gap 18.0 mmol/L (16-25) Bedside Blood Urea Nitrogen 20 mg/dl (7-18) Bedside Creatinine 1.1 mg/dl (0.6-1.3) Bedside Glucose (other) 106 mg/dl (70-99) Bedside Ionized Calcium (Miguel A) 1.24 mmol/l (1.12-1.32) Laboratory results reviewed by me Medications Administered Medications (Trade) Dose Ordered Sig/[facility] Route Start Time Stop Time Status Last Admin Dose Admin Levetiracetam 1000 mg/Dextrose 110 ml @ 440 mls/hr ONE ONCE IV 03/17/17 21:45 03/17/17 21:59 DC 03/17/17 22:14 440 MLS/HR ECG Indication: weakness Rate (beats per minute): 77 Rhythm: sinus rhythm Findings: T-wave inversion (AVL and lead III), no ectopy, other ([place], QRS, QTc are all within normal limits, no ST depression or elevation) Change: Patient's electrocardiogram was interpreted by me. ED Course 2130: The patient was evaluated in room B01. A complete history and physical exam was performed. The patient was evaluated immediately upon arrival. The patient and family were made aware of the outpatient MRI findings that showed: bilateral subdural hematomas with the left side measuring 2.6 cm and the right side measuring 1cm, per radiologist and a subfalcine herniation with an 11mm midline shift. After discussing the results with the patient and family, they prefer to go to . They have agreed to go anywhere if [facility] cannot accept the patient. [facility] is being contacted now. 2144: Ordered Levetiracetam 1000mg/Dextrose 110 ml @ 440 mls/hr. 2146: I discussed the patient's case with Dr. Mullen, [facility]. She states the patient should be placed on Keppra 1gm with an IV piggy back. There is no need for Cardene given his heart rate and blood pressure is stable. They are in touch with [facility] as to transferring the patient. 2157: The patient has been accepted to [facility]. [facility] accepted to transfer the patient. They will be here in 30-45 minutes. 0: [facility] is here to transport the patient. Medical Decision 2131: The patient was evaluated in room B01. A complete history and physical exam was performed. The patient was evaluated immediately upon arrival. The patient and family were made aware of the outpatient MRI findings that showed: bilateral subdural hematomas with the left side measuring 2.6 cm and the right side measuring 1cm, per radiologist and a subfalcine herniation with an 11mm midline shift. After discussing the results with the patient and family, they prefer to go to . They have agreed to go anywhere if [facility] cannot accept the patient. [facility] is being contacted now. I discussed the patient's case with Dr. Mullen, [facility]. She states the patient should be placed on Keppra 1gm with an IV piggy back. There is no need for Cardene given his heart rate and blood pressure is stable. They are in touch with [facility] as to transferring the patient. Medication Reconcilliation Current Medication List: was personally reviewed by me Blood Pressure Screening Patient's blood pressure: Normal blood pressure Blood pressure disposition: Did not require urgent referral Consults Time Called: 2138 Consulting Physician: Dr. Mullen, [facility] Returned Call: 2146 I discussed the patient's case with Dr. Mullen, [facility]. She states the patient should be placed on Keppra 1gm with an IV piggy back. There is no need for Cardene given his heart rate and blood pressure is stable. They are in touch with [facility] as to transferring the patient. Impression Primary Impression: Acute subdural hematoma Critical Care I have personally spent greater than 71 minutes of critical care time in the direct management of this patient. This includes bedside care, interpretation of diagnostic studies, and testing, discussion with consultants, patient, and family members, and other required patient management activities. This 71 minutes is in excess of all separately billable procedures. Scribe Attestation The scribe's documentation has been prepared under my direction and personally reviewed by me in its entirety. I confirm that the note above accurately reflects all work, treatment, procedures, and medical decision making performed by me. The chart was completed utilizing [employer] voice recognition software. Grammatical errors, random word insertions, pronoun errors, and incomplete sentences are an occasional consequence of this system due to software limitations, ambient noise, and hardware issues. Any formal questions or concerns about the content, text, or information contained within the body of this dictation should be directly addressed to the physician for clarification. Departure Information Dispostion Transfer Acute Care Facility Referrals Ana Sterling C.R.N.P. (PCP) Patient Instructions [facility]
[2017-03-17 22:11] LABS: BASO % 0.2 %; BASO ABS # 0.02 K/uL (0-0.2); EOS % 1.7 %; EOS ABS # 0.15 K/uL (0-0.5); HEMATOCRIT 38.7 % (42-52); HEMOGLOBIN 12.9 g/dL (14.0-18.0); IG# 0.03 K/uL (0.00-0.02); LYMPH ABS # 1.44 K/uL (1.2-3.4); MEAN CELL VOLUME 94.9 fL (80-100); MEAN CORPUSCULAR HEMOGLOBIN 31.6 pg (25-34); MEAN CORPUSCULAR HGB CONC 33.3 g/dl (32-36); MEAN PLATELET VOLUME 10.1 fL (7.4-10.4); MONO % 9.7 %; MONO ABS # 0.87 K/uL (0.11-0.59); NEUT % 72.1 %; NEUT ABS # 6.47 K/uL (1.4-6.5); PLATELET COUNT 340 K/uL (130-400); RED CELL DISTRIBUTION WIDTH CV 12.9 % (11.5-14.5); RED CELL DISTRIBUTION WIDTH SD 44.6 fL (36.4-46.3); WHITE BLOOD COUNT 8.98 K/uL (4.8-10.8)
[2017-03-17 22:26] LABS: ALBUMIN 3.5 gm/dl (3.4-5.0); CALCIUM 9.5 mg/dl (8.5-10.1); CREATININE 1.06 mg/dl (0.60-1.40); POTASSIUM 3.8 mmol/L (3.5-5.1)
--- NOTE | 2017-03-17 22:30 | DIAGNOSTIC IMAGING REPORT ---
CERVICAL SPINE 2 OR 3 VIEWS HISTORY: 61 years-old Male fall sdh acute subdural hematoma status post fall. COMPARISON: Brain MRI of same day TECHNIQUE: 3 views of the cervical spine FINDINGS: There is straightening of the normal cervical lordosis. The C6 and C7 vertebral bodies are partially opacified by the patient's shoulder. Mild multilevel uncovertebral spurring and facet arthrosis. No acute cervical spine fracture or subluxation identified. No prevertebral soft tissue swelling. Imaged lung apices appear clear. IMPRESSION: No acute fracture or subluxation identified. The above report was generated using voice recognition software. It may contain grammatical, syntax or spelling errors. Electronically signed by: Rory Rodriguez M.D. 03/17/2017 10:29 PM Dictated Date/Time: 03/17/2017 10:25 PM
[2017-03-17 22:31] LABS: TOTAL PROTEIN 7.7 gm/dl (6.4-8.2)
[2017-03-17 22:42] VITALS: BP 137/86; PULSE 93; O2SAT 97
== END 2017-03-17 23:01 | disposition short-term general hospital (02) ==
LOC: EDBD 21:29 → C.EDB 21:30
DX: S06.5X0A Traumatic subdural hemorrhage without loss of consciousness, initial encounter (principal); X58.XXXA Exposure to other specified factors, initial encounter; I10 Essential (primary) hypertension; Z82.49 Family history of ischemic heart disease and other diseases of the circulatory system; Z79.82 Long term (current) use of aspirin

== ENCOUNTER → 2017-03-17 | Outpatient (CLI) | payer OTHER ==
--- NOTE | 2017-03-17 21:37 | DIAGNOSTIC IMAGING REPORT ---
BRAIN WITHOUT CONTRAST HISTORY: 61 years-old Male R41.82 Mental status change acute altered mental status with recent fall. COMPARISON: None available TECHNIQUE: Multiplanar multisequence MRI of the brain was obtained without contrast FINDINGS: No intraparenchymal restricted diffusion identified to suggest acute infarction. The midline structures including the corpus callosum, brainstem, optic chiasm and pituitary gland appear unremarkable the sagittal T1 series. No cerebellar tonsillar herniation. Degenerative changes of the imaged cervical spine are noted. Rightward midline shift of 11 mm from a large acute appearing left convexity subdural hematoma measuring up to 2.6 cm transversely which also causes associated significant sulcal effacement of the left cerebral hemisphere, notably within the frontal and parietal lobes. Additionally, there is a small 10 mm acute subdural hematoma layering along the right cerebral convexity. Minimal hemorrhage tracks along the falx cerebri. No definite subarachnoid or intraparenchymal hemorrhage identified. There is mild asymmetric dilation of the atria and temporal horn right lateral ventricle without mounika hydrocephalus. Suprasellar cistern appears maintained. The major flow voids at the level of the skull base appear patent. Mastoid air cells are clear. Mild mucosal thickening of the ethmoid air cells. Orbits, calvarium, scalp and soft tissues are unremarkable. IMPRESSION: 1. Large acute subdural hematoma adjacent to the left cerebral convexity measures up to 2.6 cm resulting in significant associated sulcal effacement and subfalcine herniation with 11 mm rightward midline shift. 2. Small acute subdural hematoma adjacent to the right cerebral convexity measures 1.0 cm without significant mass effect. Patient was immediately transferred from the MRI department to the emergency room and significant findings were discussed with Dr. Crenshaw on 03/17/2017 at 9:30 PM The above report was generated using voice recognition software. It may contain grammatical, syntax or spelling errors. Electronically signed by: Rory Rodriguez M.D. 03/17/2017 9:35 PM Dictated Date/Time: 03/17/2017 9:24 PM
== END | disposition home or self-care (01) ==
LOC: C.MRI 19:42
PROVIDERS: ATTEND Nurse Practitioner Adult Health
DX: R41.82 Altered mental status, unspecified (principal); S06.5X9A Traumatic subdural hemorrhage with loss of consciousness of unspecified duration, initial encounter; W19.XXXA Unspecified fall, initial encounter

== ENCOUNTER 2017-03-24 16:59 | Observation (INO) | payer OTHER ==
[~2017-03-24] VITALS: Ht 167.6 cm; Wt 86.7 kg
[2017-03-24] MEDS ORDERED: METO50TA16 PO (17:21)
[2017-03-24] MEDS ORDERED: LEVE500T13 PO (17:21)
[2017-03-24] MEDS ORDERED: SODIUM CHLORIDE 0.9% 1000ML 1,000 ML IV SCH (17:22)
--- NOTE | 2017-03-24 17:48 | DIAGNOSTIC IMAGING REPORT ---
HEAD CT NONCONTRAST CT DOSE: 537.48 mGy.cm HISTORY: Stroke symptoms. TECHNIQUE: Multiaxial CT images of the head were performed without the use of intravenous contrast. Automated exposure control was utilized for this study. A dose lowering technique was utilized adhering to the principles of ALARA. Comparison: Brain MRI 03/17/2017. Findings: The paranasal sinuses and mastoid air cells are clear. Patient is status post interval left frontoparietal craniotomy for evacuation of a large left subdural hematoma. Significant decrease in size in the left extra-axial/subdural hematoma. This measures a maximal thickness at the high convexity of 1.9 cm and a maximal thickness of 1.2 cm at the left frontal lobe. This appears to demonstrate both acute and chronic hemorrhagic components. The midline shift has significantly improved and currently measures 3 mm to the right, previous measuring 11 mm. The small subacute subdural hematoma at the right high convexity has slightly decreased in size and currently measures up to 9 mm in thickness. Small amount of pneumocephalus on the left due to the recent postoperative change. Trace hyperdensity at the interhemispheric fissure may represent a tiny component of the subdural hematoma. No mass or acute infarct identified. Impression: 1. No acute infarct identified. 2. Interval decrease in size in the left subdural hematoma status post evacuation. This appears to demonstrate both acute on chronic hemorrhage. [address] follow-up is recommended to ensure stability. There has also been improvement in the right midline shift which now measures 3 mm. 4. Slight increase in size in the subacute subdural hematoma the right high convexity. Electronically signed by: Pawel Simpson M.D. 03/24/2017 5:47 PM Dictated Date/Time: 03/24/2017 5:39 PM
[2017-03-24 17:51] LABS: PTT PATIENT 28.2 SECONDS (21.0-31.0)
[2017-03-24 17:52] LABS: BASO % 0.5 %; BASO ABS # 0.04 K/uL (0-0.2); EOS % 2.7 %; EOS ABS # 0.23 K/uL (0-0.5); HEMOGLOBIN 12.2 g/dL (14.0-18.0); IG# 0.02 K/uL (0.00-0.02); LYMPH % 13.6 %; LYMPH ABS # 1.14 K/uL (1.2-3.4); MEAN CORPUSCULAR HEMOGLOBIN 31.9 pg (25-34); MEAN CORPUSCULAR HGB CONC 33.9 g/dl (32-36); MEAN PLATELET VOLUME 10.3 fL (7.4-10.4); MONO % 8.8 %; MONO ABS # 0.74 K/uL (0.11-0.59); NEUT % 74.2 %; NEUT ABS # 6.22 K/uL (1.4-6.5); PLATELET COUNT 310 K/uL (130-400); RED CELL DISTRIBUTION WIDTH SD 43.5 fL (36.4-46.3); WHITE BLOOD COUNT 8.39 K/uL (4.8-10.8)
[2017-03-24 18:08] LABS: BLOOD UREA NITROGEN 9 mg/dl (7-18); CALCIUM 9.5 mg/dl (8.5-10.1); CARBON DIOXIDE 31 mmol/L (21-32); CREATININE 0.91 mg/dl (0.60-1.40); GLUCOSE 105 mg/dl (70-99); POTASSIUM 3.5 mmol/L (3.5-5.1); SODIUM 138 mmol/L (136-145)
[2017-03-24 18:13] LABS: CKMB < 0.5 ng/ml (0.5-3.6)
[2017-03-24] MEDS ORDERED: LEVETIRACETAM IV 500 MG in DEXTROSE 5% 100ML 100 ML IV SCH (18:30)
[2017-03-24] MEDS ORDERED: ACETAMINOPHEN 325 MG TAB PO PRN (19:15)
[2017-03-24] MEDS ORDERED: PHARMACIST DISCHARGE MED REC CONSULT PRN (19:15)
[2017-03-24] MEDS ORDERED: POLYETHYLENE (MIRALAX) 17 GM PACK PO PRN (19:15)
[2017-03-24] MEDS ORDERED: NITROGLYCERIN 0.4 MG SL PER TAB CHARGE SL PRN (19:15)
[2017-03-24] MEDS ORDERED: MoRPHine SULFATE 2 MG/ML CARP IV PRN (19:15)
[2017-03-24] MEDS ORDERED: ONDANSETRON INJ 2 MG/ML 2 ML VIAL IV PRN (19:15)
[2017-03-24] MEDS ORDERED: ALUMINUM/MAGNESIUM/SIMETH (MAALOX MAX) 30 ML UDC PO PRN (19:15)
[2017-03-24] MEDS ORDERED: MAGNESIUM HYDROXIDE SUSP 30 ML UDC PO PRN (19:15)
[2017-03-24] MEDS ORDERED: ADENOSINE IV SOLN 3 MG/ML 2 ML VIAL ONE (19:32)
--- NOTE | 2017-03-24 19:41 | History and Physical ---
History & Physical Date & Time of Service: Mar 24, 2017 at 19:13 Chief Complaint: Slurred Speech, Unable To Grasp- Hx Brain Bleed Primary Care Physician: Moon Burk MD History of Present Illness Source: patient, family, clinic records, hospital records Patient is a pleasant 61 y/o male, with PMHx of subdural hematoma s/p craniotomy , HTN, HLD, prostate cancer s/p prostatectomy, and hypothyroidism, who presented to the ED because of dizziness, slurred speech, and R hand weakness that occurred this afternoon. Patient states symptoms lasted roughly 5 minutes. He was talking to his neighbors at the time of event. was present for episodes and confirms events. At this time, all symptoms have resolved. He admits to generally not feeling well this AM and ate very little, but cannot elaborate. Patient experienced a fall on 01/23/17. He was seen in ED at that time - diagnosed w/ L rotator cuff tear and discharged to home. On 02/24/17 patient had rotator cuff repaired by Dr. Osborne. On 03/17, patient was seen in ED for continued weakness and ambulatory dysfunction. An MRI showed subdural hematomas and patient was sent to [facility]otomy. He was discharged from [facility] on 03/21. He was placed on Keppra for seizure prevention. He denies having any seizures. Dr. Yuan is [facility] physician. Dr. Matt spoke w/ [facility] physician who thought head CT looked stable; Also, talked to Dr. Carl who recommended increasing Keppra to 1000 mg from 500 mg- he took his evening dose of Keppra + additional IV 500 mg given. Patient denies any fever, chills, sweats, lightheadedness, vision changes, CP, palpitations, edema, SOB, wheezing, cough, abdominal pain, nausea, vomiting, diarrhea, urinary symptoms, melena, numbness/tingling, muscle/joint pain, anxiety/ depression, active bleeding, or new skin discoloration/changes. Past Medical/Surgical History Medical/Surgical History: HTN subdural hematoma s/p craniotomy HLD prostate cancer s/p prostatectomy hypothyroidism s/p L rotator cuff repair Family History FHx: heart disease Hypertension Social History Smoking Status: Never Smoker Alcohol Use: occasionally Marital Status: Housing status: lives with family Multi-Drug Resistant Organisms History of MDRO: No Allergies Coded Allergies: No Known Allergies (Unverified , 03/24/17) Home Medications Scheduled Levetiracetam (Keppra), 500 MG PO BID Levothyroxine Sodium (Synthroid), 88 MCG PO QAM Metoprolol Tartrate (Lopressor) (Lopressor), 50 MG PO QAM Simvastatin (Zocor), 20 MG PO QPM Scheduled PRN Acetaminophen (Tylenol), 500 MG PO DAILY PRN for Pain Physical Exam Vital Signs Date Time Temp Pulse Resp B/P (MAP) Pulse Ox O2 Delivery O2 Flow Rate FiO2 03/24/17 18:31 82 18 153/94 96 Room Air 03/24/17 18:07 84 03/24/17 17:26 95 Room Air 03/24/17 17:09 36.6 95 17 137/92 97 Room Air General Appearance: no apparent distress Head: normocephalic, + pertinent finding (L-sided incision C/D/I) Eyes: normal inspection, PERRL ENT: hearing grossly normal Neck: supple Respiratory/Chest: lungs clear, no respiratory distress, no accessory muscle use Cardiovascular: regular rate, rhythm Abdomen/GI: normal bowel sounds, non tender, soft Back: normal inspection Extremities/Musculoskelatal: no calf tenderness, no pedal edema, + pertinent finding (L arm in sling ) Neurologic/Psych: no motor/sensory deficits, alert, normal mood/affect, oriented x 3, + pertinent finding (no aphasia, no facial droop ) Skin: normal color, warm/dry, no rash Diagnostics Laboratory Results Results Past 24 Hours Test 03/24/17 17:25 03/24/17 17:41 Range/Units White Blood Count 8.39 4.8-10.8 K/uL Red Blood Count 3.83 4.7-6.1 M/uL Hemoglobin 12.2 14.0-18.0 g/dL Hematocrit 36.0 42-52 % Mean Corpuscular Volume 94.0 80-100 fL Mean Corpuscular Hemoglobin 31.9 25-34 pg Mean Corpuscular Hemoglobin Concent 33.9 32-36 g/dl Platelet Count 310 130-400 K/uL Mean Platelet Volume 10.3 7.4-10.4 fL Neutrophils (%) (Auto) 74.2 % Lymphocytes (%) (Auto) 13.6 % Monocytes (%) (Auto) 8.8 % Eosinophils (%) (Auto) 2.7 % Basophils (%) (Auto) 0.5 % Neutrophils # (Auto) 6.22 1.4-6.5 K/uL Lymphocytes # (Auto) 1.14 1.2-3.4 K/uL Monocytes # (Auto) 0.74 0.11-0.59 K/uL Eosinophils # (Auto) 0.23 0-0.5 K/uL Basophils # (Auto) 0.04 0-0.2 K/uL RDW Standard Deviation 43.5 36.4-46.3 fL RDW Coefficient of Variation 13.0 11.5-14.5 % Immature Granulocyte % (Auto) 0.2 % Immature Granulocyte # (Auto) 0.02 0.00-0.02 K/uL Prothrombin Time 10.6 9.0-12.0 SECONDS Prothromb Time International Ratio 1.0 0.9-1.1 Activated Partial Thromboplast Time 28.2 21.0-31.0 SECONDS Partial Thromboplastin Ratio 1.1 Sodium Level 138 136-145 mmol/L Potassium Level 3.5 3.5-5.1 mmol/L Chloride Level 103 98-107 mmol/L Carbon Dioxide Level 31 21-32 mmol/L Anion Gap 4.0 3-11 mmol/L Blood Urea Nitrogen 9 7-18 mg/dl Creatinine 0.91 0.60-1.40 mg/dl Est Creatinine Clear Calc Drug Dose 87.2 ml/min Estimated GFR () 104.3 Estimated GFR (Non- 90.0 BUN/Creatinine Ratio 10.2 10-20 Random Glucose 105 70-99 mg/dl Calcium Level 9.5 8.5-10.1 mg/dl Magnesium Level 2.2 1.8-2.4 mg/dl Total Creatine Kinase 29 39-308 U/L Creatine Kinase MB < 0.5 0.5-3.6 ng/ml Creatine Kinase MB Ratio 0-3.0 Troponin I < 0.015 0-0.045 ng/ml Bedside Prothrombin Time INR 1.1 0.9-1.1 Bedside Glucose 136 70-99 mg/dl Diagnostic Radiology HEAD CT NONCONTRAST CT DOSE: 537.48 mGy.cm HISTORY: Stroke symptoms. TECHNIQUE: Multiaxial CT images of the head were performed without the use of intravenous contrast. Automated exposure control was utilized for this study. A dose lowering technique was utilized adhering to the principles of ALARA. Comparison: Brain MRI 03/17/2017. Findings: The paranasal sinuses and mastoid air cells are clear. Patient is status post interval left frontoparietal craniotomy for evacuation of a large left subdural hematoma. Significant decrease in size in the left extra-axial/subdural hematoma. This measures a maximal thickness at the high convexity of 1.9 cm and a maximal thickness of 1.2 cm at the left frontal lobe. This appears to demonstrate both acute and chronic hemorrhagic components. The midline shift has significantly improved and currently measures 3 mm to the right, previous measuring 11 mm. The small subacute subdural hematoma at the right high convexity has slightly decreased in size and currently measures up to 9 mm in thickness. Small amount of pneumocephalus on the left due to the recent postoperative change. Trace hyperdensity at the interhemispheric fissure may represent a tiny component of the subdural hematoma. No mass or acute infarct identified. Impression: 1. No acute infarct identified. 2. Interval decrease in size in the left subdural hematoma status post evacuation. This appears to demonstrate both acute on chronic hemorrhage. [address] follow-up is recommended to ensure stability. There has also been improvement in the right midline shift which now measures 3 mm. 4. Slight increase in size in the subacute subdural hematoma the right high convexity. Electronically signed by: Pawel Simpson M.D. 03/24/2017 5:47 PM Dictated Date/Time: 03/24/2017 5:39 PM The status of this report is Signed. Draft = Not yet reviewed or approved by Radiologist. Signed = Reviewed and approved by Radiologist. EKG NANCY RODRIGUEZ ID:[id number] 24-MAR-2017 17:43:50 [facility] Sinus rhythm with occasional Premature ventricular complexes Otherwise normal ECG When compared with ECG of 17-MAR-2017 21:36, Premature ventricular complexes are now Present 25mm/s 10mm/mV 150Hz 8.0 SP2 12SL 241 HD CYNTHIA: 12 Referred by: ED Unconfirmed Vent. rate 88 BPM OH interval 146 ms QRS duration 100 ms QT/QTc 370/447 ms P-R-T axes -10 0 -11 1955 (61 yr) Male Room:B5 Loc:15 Drafter Structural:Beatriz Wan ind: Impression Assessment and Plan Patient is a pleasant 61 y/o male, with PMHx of subdural hematoma s/p craniotomy , HTN, HLD, prostate cancer s/p prostatectomy, and hypothyroidism, who presented to the ED because of dizziness, slurred speech, and R hand weakness that occurred this afternoon. Dizziness, slurred speech, and R hand weakness, ?secondary to TIA vs seizure: - Admit to tele for cardiac monitoring - Cardiac enzymes negative x1 - EKG QAM and PRN for chest pain - O2 protocol - Stroke protocol: -- PT/OT and speech evaluation -- Aspiration/fall precautions -- Dysphagia screen, advance diet as tolerated -- Routine neuro checks -- Elevate HOB - Check bilateral carotid US - ED physician spoke to [facility] provider who reviewed head CT and felt it looked stable - Seizure precautions - Consult neurology, appreciate recommendations- ED provider spoke w/ Dr. Carl - recommends increasing Keppra from 500 BID to 1,000 mg and will reassess in AM Subdural hematoma s/p craniotomy- follows w/ Dr. Yuan: On Keppra for seizure prevention- increase medication as above HTN: Continue Metoprolol HLD: Continue Zocor Hypothyroidism- TSH 2.37 on 03/16/17: Continue Synthroid Prostate cancer s/p prostatectomy DVT prophylaxis: TEDs, SCDs; hold chemical anticoagulation due to recent hematoma Code status: LEVEL III, FULL NO VENT Dispo: From home, lives w/ - PT/OT and CM consulted Resident Physician Supervision Note: I was present with the PA Ainsley Wilson during the history and exam. I discussed the case with the PA and agree with the findings and plan as documented in the note. Any exceptions or clarifications are listed here: 61 y/o M Hx subdural hematoma s/p craniotomy, HTN, HLD - pt is on prophylactic Keppra. Developed acute slurred speech and R UE weakness - symptoms resolved prior to medical eval. OE AAO x 3 Large craniotomy scar - R arm in splint - no distress S1,2 R CTAB NT, ND No CCE No current deficits P: Pt admitted for MRI/MRA Keppra increased to 1000 BID To be evaluated by neuro AM Documented By: Casey Landaverde Level of Care Telemetry Resuscitation Status FULL NO MECH VENTILATION VTE Prophylaxis Given or contraindicated: T.E.D. Stockings, SCD's, Contraindicated
[2017-03-24] MEDS ORDERED: IV FLUIDS COMPLETED PRN (20:15)
[2017-03-24 20:58] VITALS: BP 158/105; PULSE 101; TEMP 36.9; O2SAT 98; Ht 167.6 cm; Wt 86.7 kg
[2017-03-24] MEDS ORDERED: SIMVASTATIN 20 MG TAB PO SCH (21:00)
[2017-03-24 23:16] VITALS: BP 157/88; PULSE 91; TEMP 36.7; O2SAT 96
[2017-03-24] MEDS ORDERED: LEVETIRACETAM IV 500 MG in DEXTROSE 5% 100ML 100 ML IV STA (23:18)
[2017-03-24] MEDS: LEVETIRACETAM IV 1,000 MG in DEXTROSE 5% 100ML 100 ML IV SCH (23:18)
--- NOTE | 2017-03-24 23:24 | Progress Note ---
Progress Note Date of Service Mar 24, 2017. Progress Note Called as patient's PM dose of Keppra for 9pm was 1000mg. As per ED physician and hospitalist team note, patient already received 500mg [employer] and 500mg on arrival to ED Called pharmacy to confirm - verified patient did not receive dose in ED Patient confirms PO 500mg taken [employer] Ordered 500mg Keppra IV to be given stat and to resume Keppra 1000mg BID as of the morning as per neurology. Resident Tracking Resident Involvement: Resident Care Provided Care Provided: Adult [facility]
[2017-03-25] VITALS: O2SAT 98
--- NOTE | 2017-03-25 00:22 | EMERGENCY ROOM VISIT NOTE ---
History Report prepared by Susanneibpadmini: Teresa Santos Under the Supervision of: Dr. El Matt D.O. First contact with patient: 17:09 Chief Complaint: STROKE SYMPTOMS Stated Complaint: SLURRED SPEECH, UNABLE TO GRASP- HX BRAIN BLEED History of Present Illness The patient is a 61 year old male who presents to the Emergency Room with complaints of an episode of slurred speech around 1.5 hours ago. The patient had brain surgery 6 days ago. He had a brain bleed after a fall in January. He had lost movement in his right side and was dragging his right foot prior to the surgery. Today at 1530, he started feeling dazed. He started having some slurred speech which lasted for 5 minutes. He felt like he could not get his words out. He had some trouble using his right hand at that time. His speech is back to normal now. He has a history of hypertension, high cholesterol, and prostate cancer. He is not on any blood thinners. He recently had left rotator cuff surgery. Source of History: patient, spouse/significant other Onset: 1.5 hours ago Position: other (global) Quality: other (slurred speech) Timing: other (episodic) Associated Symptoms: + weakness (right hand) Review of Systems See HPI for pertinent positives & negatives. A total of 10 systems reviewed and were otherwise negative. Past Medical & Surgical Medical Problems: (1) Hypertension (2) Kidney stone (3) Stroke-like symptoms Family History FHx: heart disease Hypertension Social History Smoking Status: Never Smoker Alcohol Use: occasionally Marital Status: Housing Status: lives with significant other Current/Historical Medications Scheduled Levetiracetam (Keppra), 500 MG PO BID Levothyroxine Sodium (Synthroid), 88 MCG PO QAM Metoprolol Tartrate (Lopressor) (Lopressor), 50 MG PO QAM Simvastatin (Zocor), 20 MG PO QPM Scheduled PRN Acetaminophen (Tylenol), 500 MG PO DAILY PRN for Pain Allergies Coded Allergies: No Known Allergies (Unverified , 03/24/17) Physical Exam Vital Signs Date Time Temp Pulse Resp B/P (MAP) Pulse Ox O2 Delivery O2 Flow Rate FiO2 03/24/17 18:31 82 18 153/94 96 Room Air 03/24/17 18:07 84 03/24/17 17:26 95 Room Air 03/24/17 17:09 36.6 95 17 137/92 97 Room Air Physical Exam GENERAL: Sitting up in bed, no acute distress, disheveled, nontoxic, left arm in sling. HEAD: Sutures located over the left scalp are clean dry and intact. EYE EXAM: normal conjunctiva. PERRL and EOM's grossly intact. OROPHARYNX: no exudate, no erythema, lips, buccal mucosa, and tongue normal and mucous membranes are moist NECK: supple, no nuchal rigidity, no adenopathy, non-tender LUNGS: Clear to auscultation. Normal chest wall mechanics HEART: no murmurs, S1 normal and S2 normal ABDOMEN: abdomen soft, non-tender, normo-active bowel sounds, no masses, no rebound or guarding. BACK: Back is symmetrical on inspection and there is no deformity, no midline tenderness, no CVA tenderness. SKIN: no rashes and no bruising UPPER EXTREMITIES: upper extremities are grossly normal. LOWER EXTREMITIES: No pitting edema. NEURO EXAM: Normal sensorium, cranial nerves II-XII intact, normal speech, no gross weakness of arms, no gross weakness of legs. Drift and finger to nose intact with RUE, unable to perform with LUE due to sling. Medical Decision & Procedures ER Provider Diagnostic Interpretation: Radiology results as stated below per my review and the radiologist's interpretation: HEAD CT NONCONTRAST CT DOSE: 537.48 mGy.cm HISTORY: Stroke symptoms. TECHNIQUE: Multiaxial CT images of the head were performed without the use of intravenous contrast. Automated exposure control was utilized for this study. A dose lowering technique was utilized adhering to the principles of ALARA. Comparison: Brain MRI 03/17/2017. Findings: The paranasal sinuses and mastoid air cells are clear. Patient is status post interval left frontoparietal craniotomy for evacuation of a large left subdural hematoma. Significant decrease in size in the left extra-axial/subdural hematoma. This measures a maximal thickness at the high convexity of 1.9 cm and a maximal thickness of 1.2 cm at the left frontal lobe. This appears to demonstrate both acute and chronic hemorrhagic components. The midline shift has significantly improved and currently measures 3 mm to the right, previous measuring 11 mm. The small subacute subdural hematoma at the right high convexity has slightly decreased in size and currently measures up to 9 mm in thickness. Small amount of pneumocephalus on the left due to the recent postoperative change. Trace hyperdensity at the interhemispheric fissure may represent a tiny component of the subdural hematoma. No mass or acute infarct identified. Impression: 1. No acute infarct identified. 2. Interval decrease in size in the left subdural hematoma status post evacuation. This appears to demonstrate both acute on chronic hemorrhage. [address] follow-up is recommended to ensure stability. There has also been improvement in the right midline shift which now measures 3 mm. 4. Slight increase in size in the subacute subdural hematoma the right high convexity. Electronically signed by: Pawel Simpson M.D. 03/24/2017 5:47 PM Dictated Date/Time: 03/24/2017 5:39 PM Laboratory Results 03/24/17 17:25 Red Blood Count 3.83, Mean Corpuscular Volume 94.0, Mean Corpuscular Hemoglobin 31.9, Mean Corpuscular Hemoglobin Concent 33.9, Mean Platelet Volume 10.3, Neutrophils (%) (Auto) 74.2, Lymphocytes (%) (Auto) 13.6, Monocytes (%) (Auto) 8.8, Eosinophils (%) (Auto) 2.7, Basophils (%) (Auto) 0.5, Neutrophils # (Auto) 6.22, Lymphocytes # (Auto) 1.14, Monocytes # (Auto) 0.74, Eosinophils # (Auto) 0.23, Basophils # (Auto) 0.04 03/24/17 17:25 Test 03/24/17 17:25 03/24/17 17:41 White Blood Count 8.39 K/uL (4.8-10.8) Red Blood Count 3.83 M/uL (4.7-6.1) Hemoglobin 12.2 g/dL (14.0-18.0) Hematocrit 36.0 % (42-52) Mean Corpuscular Volume 94.0 fL (80-100) Mean Corpuscular Hemoglobin 31.9 pg (25-34) Mean Corpuscular Hemoglobin Concent 33.9 g/dl (32-36) Platelet Count 310 K/uL (130-400) Mean Platelet Volume 10.3 fL (7.4-10.4) Neutrophils (%) (Auto) 74.2 % Lymphocytes (%) (Auto) 13.6 % Monocytes (%) (Auto) 8.8 % Eosinophils (%) (Auto) 2.7 % Basophils (%) (Auto) 0.5 % Neutrophils # (Auto) 6.22 K/uL (1.4-6.5) Lymphocytes # (Auto) 1.14 K/uL (1.2-3.4) Monocytes # (Auto) 0.74 K/uL (0.11-0.59) Eosinophils # (Auto) 0.23 K/uL (0-0.5) Basophils # (Auto) 0.04 K/uL (0-0.2) RDW Standard Deviation 43.5 fL (36.4-46.3) RDW Coefficient of Variation 13.0 % (11.5-14.5) Immature Granulocyte % (Auto) 0.2 % Immature Granulocyte # (Auto) 0.02 K/uL (0.00-0.02) Prothrombin Time 10.6 SECONDS (9.0-12.0) Prothromb Time International Ratio 1.0 (0.9-1.1) Activated Partial Thromboplast Time 28.2 SECONDS (21.0-31.0) Partial Thromboplastin Ratio 1.1 Anion Gap 4.0 mmol/L (3-11) Est Creatinine Clear Calc Drug Dose 87.2 ml/min Estimated GFR () 104.3 Estimated GFR (Non- 90.0 BUN/Creatinine Ratio 10.2 (10-20) Calcium Level 9.5 mg/dl (8.5-10.1) Magnesium Level 2.2 mg/dl (1.8-2.4) Total Creatine Kinase 29 U/L (39-308) Creatine Kinase MB < 0.5 ng/ml (0.5-3.6) Creatine Kinase MB Ratio (0-3.0) Troponin I < 0.015 ng/ml (0-0.045) Bedside Prothrombin Time INR 1.1 (0.9-1.1) Bedside Glucose 136 mg/dl (70-99) Laboratory results per my review. Medications Administered Medications (Trade) Dose Ordered Sig/Diamante Route Start Time Stop Time Status Last Admin Dose Admin Sodium Chloride 1,000 ml @ 50 mls/hr Q20H IV 03/24/17 17:22 03/24/17 20:46 DC 03/24/17 17:48 50 MLS/HR ECG Indication: weakness Rate (beats per minute): 86 Rhythm: sinus rhythm Findings: PVC, other (normal axis) Change: Patient's electrocardiogram interpreted by me. ED Course ED COURSE: Vital signs were reviewed and showed hypertension. The patients medical record was reviewed The above diagnostic studies were performed and reviewed. ED treatments and interventions as stated above. 1713: The patient was evaluated in room B5. A complete history and physical examination was performed. 1722: NSS 1000 ml @ 50 mls/hr IV. 1801: I discussed the patient's case with Dr. Yuan, [facility] neurosurgery. We are in agreement with the plan. 1808: Upon reevaluation, the patient is stable. I discussed my findings with the patient and his and they understand and agree with the treatment plan. Based on the patients age, coexisting illnesses, exam and lab findings the decision to treat as an inpatient was made. The patient remained stable while under my care. The patient will be evaluated for further management. 1823: I discussed the patient's case with Dr. Carl, [facility] neurology. He agrees with bringing the patient in and an extra dose of Keppra now. 1830: Levetiracetam 500 mg/Dextrose 105 ml @ 420 mls/hr IV. 1843: I reviewed the patient's case with Dr. Lai, [facility] hospitalist. He will evaluate the patient for further management. Medical Decision Differential Diagnosis includes but is not limited to ischemic Stroke, hemorrhagic stroke, bells palsy, mass, neoplasm, migraine headache, seizure, subarachnoid hemorrhage, TIA, and transient global amnesia. Patient is a 61-year-old who presents to ER for right hand numbness and weakness associated with slurred speech was started around 3:30 PM. He has a recent history of a subdural which was acute on chronic with brain surgery and just discharged [address] was obtained and showed the above findings. I discussed with his surgeon notes that this is not new and is improved. They recommend observation overnight as this is likely a seizure. I discussed with her neurologist and internal medicine doctor. We did increase his Keppra I gave him an extra dose. CBC all BMP and troponin was unremarkable. INR was unremarkable. Patient was updated bedside along with family and was admits internal medicine following 500 IV of Keppra. Medication Reconcilliation Current Medication List: was personally reviewed by me Blood Pressure Screening Patient's blood pressure: Elevated blood pressure Blood pressure disposition: Elevated BP felt to be situational Consults Time Called: 175 Consulting Physician: Dr. Yuan, [facility] neurosurgery Returned Call: 180 I discussed the patient's case with her. We are in agreement with the plan. Additional Consults: Time Called: 1821 Consulted Physician: Dr. Carl [facility] neurology Returned Call: [phone] Additional Comments: I discussed the patient's case with him. He agrees with bringing the patient in and an extra dose of Keppra now. Time Called: 1810 Consulted Physician: Dr. Lai [facility] hospitalist Returned Call: [phone] Additional Comments: I reviewed the patient's case with him. He will evaluate the patient for further management. Impression Primary Impression: Expressive aphasia Additional Impression: Subdural hematoma Scribe Attestation The scribe's documentation has been prepared under my direction and personally reviewed by me in its entirety. I confirm that the note above accurately reflects all work, treatment, procedures, and medical decision making performed by me. Departure Information Dispostion Being Evaluated By Hospitalist Referrals Moon Burk MD (PCP) Patient Instructions My [facility] Problem Qualifiers
[2017-03-25 04:00] VITALS: O2SAT 98
[2017-03-25 04:35] VITALS: BP 143/93; PULSE 81; TEMP 36.7; O2SAT 96
[2017-03-25] MEDS ORDERED: LEVOTHYROXINE 88 MCG TAB PO SCH (06:00)
[2017-03-25 06:17] LABS: HEMATOCRIT 36.2 % (42-52); HEMOGLOBIN 12.3 g/dL (14.0-18.0); MEAN CELL VOLUME 92.8 fL (80-100); MEAN CORPUSCULAR HEMOGLOBIN 31.5 pg (25-34); MEAN PLATELET VOLUME 9.8 fL (7.4-10.4); PLATELET COUNT 288 K/uL (130-400); RED CELL DISTRIBUTION WIDTH CV 12.6 % (11.5-14.5); RED CELL DISTRIBUTION WIDTH SD 42.8 fL (36.4-46.3); WHITE BLOOD COUNT 8.76 K/uL (4.8-10.8)
[2017-03-25 06:55] LABS: CREATININE 0.79 mg/dl (0.60-1.40); POTASSIUM 3.7 mmol/L (3.5-5.1)
--- NOTE | 2017-03-25 07:13 | DIAGNOSTIC IMAGING REPORT ---
ULTRASOUND OF THE CAROTID ARTERIES CLINICAL HISTORY: Stroke-like symptoms. COMPARISON STUDY: No priors. TECHNIQUE: Real-time, grayscale, and color Doppler sonography of the carotid arteries is performed. Images are reviewed in the transverse and longitudinal planes. FINDINGS: Blood pressures were not assessed due to the presence of IV catheters. The carotid arteries are patent bilaterally and demonstrate antegrade flow. There is mild to moderate echogenic atherosclerotic plaque seen in the carotid bulbs, right greater than left. Normal doppler arterial waveforms are seen throughout. Velocity measurements are listed below. Common carotid peak systolic velocity (cm/sec): RIGHT: 81 LEFT: 100 ICA proximal peak systolic velocity (cm/sec): RIGHT: 132 LEFT: 94 ICA mid peak systolic velocity (cm/sec): RIGHT: 151 LEFT: 99 ICA distal peak systolic velocity (cm/sec): RIGHT: 102 LEFT: 71 ICA/CC peak systolic ratio: RIGHT: 1.9 LEFT: 1.0 Antegrade flow was shown in the vertebral arteries. The external carotid arteries are patent. IMPRESSION: 1. Findings suggest 50-60% stenosis within the proximal to midportion of the right internal carotid artery by velocity criteria. 2. There is no sonographic evidence of hemodynamically significant stenosis in the left carotid arterial system. 3. Antegrade flow is shown in the vertebral arteries. Electronically signed by: Dmitry Saldaña M.D. 03/25/2017 7:12 AM Dictated Date/Time: 03/25/2017 7:07 AM
[2017-03-25 07:58] VITALS: BP 139/93; PULSE 100; TEMP 36.5; O2SAT 96
[2017-03-25] MEDS: LEVETIRACETAM IV 1,000 MG in DEXTROSE 5% 100ML 100 ML IV SCH (08:25)
[2017-03-25] MEDS ORDERED: METOPROLOL TARTRATE 50 MG TAB PO SCH (09:00)
--- NOTE | 2017-03-25 09:08 | Neurology Consultation ---
Neurology Consultation Date of Consultation: Mar 25, 2017. Attending Physician: Micheline Martinez DO Primary Care Physician: Moon Burk MD Reason for Consultation: Strokelike symptoms versus seizure History of Present Illness Source: patient, hospital records The patient is a 61-year-old male with a chief complaint of speech difficulty that began suddenly yesterday afternoon while at home. The patient recalls that his neighbors were visiting at that time. He recalls having some difficulty with expressive speech as well as some associated weakness and sensory change to the right hand. The symptoms resolved within a few minutes. The patient does seem slightly confused and has some difficulty elaborating further. Past medical history notable for bilateral, left greater than right, subdural hematomas identified on an outpatient MRI done 03/17/2017. The patient is status post surgical evacuation of the left convexity subdural hematoma which was done a few days ago at [facility]. He had been experiencing right-sided weakness prior to surgical treatment. He was discharged from [facility] on Keppra 500 mg twice daily. A follow-up CT of the head completed yesterday reveals an interval decrease in size of the left convexity subdural hematoma with improvement in rightward shift. There is an acute on chronic component to the left convexity subdural hematoma which is smaller in size. The previously identified right convexity subdural is slightly larger. I reviewed the images as well as the radiologist's interpretation of this test. The emergency department physician had discussed his case with his neurosurgeon. Additional surgical intervention was not felt to be necessary. The patient has been admitted for further evaluation and treatment. I had discussed this case with the emergency department physician last night and recommended giving additional Keppra at that time as well as increasing his dosage of Keppra to 1000 mg twice daily. A carotid ultrasound has also been completed. There is a 50-60% stenosis of the right internal carotid artery that is not clinically significant. No other abnormalities observed. An electrocardiogram reveals a sinus rhythm with PVCs, 88 bpm. Past Medical/Surgical History Medical Problems: (1) Acute subdural hematoma Status: Acute (2) Arm pain, left Status: Acute (3) Dislocation of left shoulder joint Status: Acute (4) Expressive aphasia Status: Acute (5) Subdural hematoma Status: Acute Family History Noncontributory Social History Smoking Status: Never smoker Alcohol Use: occasionally Marital Status: Housing Status: lives with significant other Allergies Coded Allergies: No Known Allergies (Unverified , 03/24/17) Current Inpatient Medications Current Inpatient Medications Medications (Trade) Dose Ordered Sig/Diamante Route Start Time Stop Time Status Last Admin Dose Admin Acetaminophen (Tylenol Tab) 650 mg Q4H PRN PO 03/24/17 19:15 04/23/17 19:14 Al Hydrox/Mg Hydrox/Simethicone (Maalox Max Susp) 15 ml Q4H PRN PO 03/24/17 19:15 04/23/17 19:14 Magnesium Hydroxide (Milk Of Magnesia Susp) 30 ml Q12H PRN PO 03/24/17 19:15 04/23/17 19:14 Ondansetron HCl (Zofran Inj) 4 mg Q6H PRN IV 03/24/17 19:15 04/23/17 19:14 Nitroglycerin (Nitrostat Tab) 0.4 mg UD PRN SL 03/24/17 19:15 04/23/17 19:14 Morphine Sulfate (MoRPHine SULFATE INJ) 2 mg Q30M PRN IV 03/24/17 19:15 04/07/17 19:14 Polyethylene (Miralax Powder Packet) 17 gm DAILY PRN PO 03/24/17 19:15 04/23/17 19:14 Miscellaneous Information (Pharmacist Discharge Med Rec Consult) 1 ea UD PRN N/A 03/24/17 19:15 04/23/17 19:14 Levothyroxine Sodium (Synthroid Tab) 88 mcg DAILYBB PO 03/25/17 06:00 04/24/17 06:59 03/25/17 06:06 88 MCG Metoprolol Tartrate (Lopressor Tab) 50 mg QAM PO 03/25/17 09:00 04/24/17 08:59 03/25/17 08:26 50 MG Simvastatin (Zocor Tab) 20 mg QPM PO 03/24/17 21:00 04/23/17 20:59 03/24/17 23:45 20 MG Levetiracetam 1000 mg/Dextrose 110 ml @ 440 mls/hr BID IV 03/24/17 21:00 04/23/17 20:59 03/25/17 08:25 440 MLS/HR Miscellaneous (Iv Fluids Completed) 1 ea PRN PRN N/A 03/24/17 20:15 03/24/18 20:14 Review of Systems Constitutional: No fever or chills Eyes: No vision loss or diplopia ENT: No vertigo or hearing loss Cardiovascular: No chest pain or palpitations Respiratory: No coughing wheezing or shortness of breath Neurological: As per history of present illness. Patient denies headache, weakness, or sensory loss at this time Musculoskeletal: Patient reports left shoulder pain related to recent rotator cuff injury requiring surgical repair A full 10 point review of systems was obtained in this patient with pertinent positives and negatives described in the history of present illness and otherwise listed above. All remaining systems were reviewed and are negative. Physical Exam Vital Signs (Past 24 Hrs): Date Time Temp Pulse Resp B/P (MAP) Pulse Ox O2 Delivery O2 Flow Rate FiO2 03/25/17 07:58 36.5 100 16 139/93 (108) 96 Room Air 03/25/17 04:35 36.7 81 20 143/93 (110) 96 Room Air 03/25/17 04:00 98 Room Air 03/25/17 00:00 98 Room Air 03/24/17 23:16 36.7 91 18 157/88 (111) 96 Room Air 03/24/17 20:58 36.9 101 19 158/105 98 Room Air 03/24/17 18:31 82 18 153/94 96 Room Air 03/24/17 18:07 84 03/24/17 17:26 95 Room Air 03/24/17 17:09 36.6 95 17 137/92 97 Room Air The patient is a well-developed, well-nourished, elderly male. He is sitting up in bed in no acute distress. He is alert and fully oriented. Recent and remote memory intact. Attention and concentration normal although processing speed seems modestly slow. Patient is able to name objects and repeat phrases. He exhibits an age-appropriate fund of knowledge and normal vocabulary. Visual pozo full to confrontation. Visual acuity normal. Pupils equal round reactive to light and accommodation. Eye movements normal. Facial sensation intact bilaterally. There is normal facial strength and symmetry. Hearing intact to finger rub bilaterally. Palate elevates to midline. Shoulder shrug strength intact bilaterally. Tongue protrudes to midline. Sensation intact to light touch , temperature, vibration, and proprioception are all 4 limbs. Deep tendon reflexes intact and symmetrical for the arms and legs. Plantar responses downgoing bilaterally. There is no dysdiadochokinesia or dysmetria with finger to nose or heel to powers bilaterally. Ophthalmoscopic examination reveals normal- appearing optic disks and posterior segments. No papilledema or hemorrhages. Carotid pulses normal bilaterally, no bruits to auscultation. Gait and station normal. Muscle strength and tone normal for the arms and legs although left upper extremity movement limited due to recent left shoulder surgery with postsurgical sling in place. There is no atrophy. No abnormal movements observed. Laboratory Results Past 24 Hours: 03/25/17 05:27 03/25/17 05:27 Test 03/24/17 17:25 03/24/17 17:41 03/25/17 05:27 Immature Granulocyte % (Auto) 0.2 % White Blood Count 8.39 K/uL (4.8-10.8) Red Blood Count 3.83 M/uL (4.7-6.1) 3.90 M/uL (4.7-6.1) Hemoglobin 12.2 g/dL (14.0-18.0) Hematocrit 36.0 % (42-52) Mean Corpuscular Volume 94.0 fL (80-100) 92.8 fL (80-100) Mean Corpuscular Hemoglobin 31.9 pg (25-34) 31.5 pg (25-34) Mean Corpuscular Hemoglobin Concent 33.9 g/dl (32-36) 34.0 g/dl (32-36) Platelet Count 310 K/uL (130-400) Mean Platelet Volume 10.3 fL (7.4-10.4) 9.8 fL (7.4-10.4) Neutrophils (%) (Auto) 74.2 % Lymphocytes (%) (Auto) 13.6 % Monocytes (%) (Auto) 8.8 % Eosinophils (%) (Auto) 2.7 % Basophils (%) (Auto) 0.5 % Neutrophils # (Auto) 6.22 K/uL (1.4-6.5) Lymphocytes # (Auto) 1.14 K/uL (1.2-3.4) Monocytes # (Auto) 0.74 K/uL (0.11-0.59) Eosinophils # (Auto) 0.23 K/uL (0-0.5) Basophils # (Auto) 0.04 K/uL (0-0.2) Immature Granulocyte # (Auto) 0.02 K/uL (0.00-0.02) Prothrombin Time 10.6 SECONDS (9.0-12.0) Prothromb Time International Ratio 1.0 (0.9-1.1) Activated Partial Thromboplast Time 28.2 SECONDS (21.0-31.0) Partial Thromboplastin Ratio 1.1 Estimated Average Glucose 97 mg/dl Hemoglobin A1c 5.0 % (4.5-5.6) Magnesium Level 2.2 mg/dl (1.8-2.4) Total Creatine Kinase 29 U/L (39-308) Creatine Kinase MB < 0.5 ng/ml (0.5-3.6) Creatine Kinase MB Ratio (0-3.0) Troponin I < 0.015 ng/ml (0-0.045) Bedside Prothrombin Time INR 1.1 (0.9-1.1) Bedside Glucose 136 mg/dl (70-99) RDW Standard Deviation 42.8 fL (36.4-46.3) RDW Coefficient of Variation 12.6 % (11.5-14.5) Anion Gap 6.0 mmol/L (3-11) Est Creatinine Clear Calc Drug Dose 100.0 ml/min Estimated GFR () 111.5 Estimated GFR (Non- 96.2 BUN/Creatinine Ratio 11.0 (10-20) Calcium Level 9.0 mg/dl (8.5-10.1) Triglycerides Level 123 mg/dl (0-150) Cholesterol Level 132 mg/dl (0-200) HDL Cholesterol 37 mg/dl LDL Cholesterol, Calculated 70 mg/dl VLDL Cholesterol, Calculated 25 mg/dl Cholesterol/HDL Ratio 3.6 Impression Suspected focal seizure characterized by transient speech difficulty and associated sensorimotor changed to the right hand secondary to residual left cerebral convexity subdural hematoma, status post evacuation at [facility] about 3 days ago. A left hemispheric TIA is not excluded, but probably less likely. Plan I have ordered a bedside electroencephalogram. Continue Keppra 1000 mg twice a day. May be changed to tablets. Patient will need a repeat CT of the head completed this morning.
--- NOTE | 2017-03-25 10:26 | DIAGNOSTIC IMAGING REPORT ---
HEAD CT NONCONTRAST CT DOSE: 614.27 mGy.cm HISTORY: subdural hematoma TECHNIQUE: Multiaxial CT images of the head were performed without the use of intravenous contrast. Automated exposure control was utilized for this study. A dose lowering technique was utilized adhering to the principles of ALARA. Comparison: Head CT 03/24/2017. Findings: The paranasal sinuses and mastoid air cells are clear. There is again noted a left frontoparietal craniotomy. Small amount of left extra-axial pneumocephalus also remains unchanged. Bilateral subdural hematomas, left greater than right, are not significant changed. The left subdural hematoma measures up to 1.9 cm in thickness. The right subdural hematoma measures up to 1 cm in thickness. There is approximately 3 mm of right midline shift, unchanged. The right subdural hematoma is subacute to chronic. The left subdural hematoma is likely acute on chronic. Trace subdural hematoma at the anterior interhemispheric fissure persists. No acute infarct. Impression: No change in the bilateral subdural hematomas and and left sided postoperative changes as described above. No acute infarct. Stable 3 mm of right midline shift. Electronically signed by: Pawel Simpson M.D. 03/25/2017 10:24 AM Dictated Date/Time: 03/25/2017 10:14 AM
[2017-03-25 11:35] VITALS: BP 138/92; PULSE 76; TEMP 36.6; O2SAT 95
--- NOTE | 2017-03-25 13:38 | EEG Procedure Note ---
EEG Procedure Note Date of Service Mar 25, 2017. Start / End Times Start Time: 10:34 AM End Time: 10:55 AM Referring Physician Edmundo Carl History This is a 61-year-old male with a recent left frontal subdural hematoma. Presents with symptoms concerning for possible seizure-like episode. EEG for further evaluation of possible seizure etiology. Home Medication List Scheduled Levetiracetam (Keppra), 500 MG PO BID Levothyroxine Sodium (Synthroid), 88 MCG PO QAM Metoprolol Tartrate (Lopressor) (Lopressor), 50 MG PO QAM Simvastatin (Zocor), 20 MG PO QPM Scheduled PRN Acetaminophen (Tylenol), 500 MG PO DAILY PRN for Pain Inpatient Medication List Current Inpatient Medications Medications (Trade) Dose Ordered Sig/Diamante Route Start Time Stop Time Status Last Admin Dose Admin Acetaminophen (Tylenol Tab) 650 mg Q4H PRN PO 03/24/17 19:15 04/23/17 19:14 Al Hydrox/Mg Hydrox/Simethicone (Maalox Max Susp) 15 ml Q4H PRN PO 03/24/17 19:15 04/23/17 19:14 Magnesium Hydroxide (Milk Of Magnesia Susp) 30 ml Q12H PRN PO 03/24/17 19:15 04/23/17 19:14 Ondansetron HCl (Zofran Inj) 4 mg Q6H PRN IV 03/24/17 19:15 04/23/17 19:14 Nitroglycerin (Nitrostat Tab) 0.4 mg UD PRN SL 03/24/17 19:15 04/23/17 19:14 Morphine Sulfate (MoRPHine SULFATE INJ) 2 mg Q30M PRN IV 03/24/17 19:15 04/07/17 19:14 Polyethylene (Miralax Powder Packet) 17 gm DAILY PRN PO 03/24/17 19:15 04/23/17 19:14 Miscellaneous Information (Pharmacist Discharge Med Rec Consult) 1 ea UD PRN N/A 03/24/17 19:15 04/23/17 19:14 Levothyroxine Sodium (Synthroid Tab) 88 mcg DAILYBB PO 03/25/17 06:00 04/24/17 06:59 03/25/17 06:06 88 MCG Metoprolol Tartrate (Lopressor Tab) 50 mg QAM PO 03/25/17 09:00 04/24/17 08:59 03/25/17 08:26 50 MG Simvastatin (Zocor Tab) 20 mg QPM PO 03/24/17 21:00 04/23/17 20:59 03/24/17 23:45 20 MG Levetiracetam 1000 mg/Dextrose 110 ml @ 440 mls/hr BID IV 03/24/17 21:00 04/23/17 20:59 03/25/17 08:25 440 MLS/HR Miscellaneous (Iv Fluids Completed) 1 ea PRN PRN N/A 03/24/17 20:15 03/24/18 20:14 Description This is a 21 electrode EEG with a single channel dedicated to limited EKG. The electrodes were placed in accordance with the International 10-20 system. At the start of the recording the patient was in an awake state. Background was well organized and composed of symmetric mixed alpha and beta frequencies. There was a symmetric well-formed moderate amplitude 8-9 Hz posterior dominant rhythm that was reactive to eye opening and closure. Hyperventilation was not done. Intermittent photic stimulation at various frequencies produced no abnormalities. Sleep was indicated by loss of muscle artifact, slowing the background rhythm, vertex waves, and symmetric sleep spindles. Interpretation This is a normal awake and asleep routine EEG. There was no electrographic seizures or epileptiform discharges. Clinical Correlation A normal EEG does not rule out epilepsy if there is a strong clinical suspicion.
[2017-03-25] MEDS ORDERED: KPP/1000 PO (13:40)
--- NOTE | 2017-03-25 13:46 | Discharge Instructions ---
Discharge Instructions Date of Service Mar 25, 2017. Admission Reason for Admission: Stroke-Like Symptoms Discharge Discharge Diagnosis / Problem: Possible Seizure vs Transient Ischemic Attack Discharge Goals Goal(s): Decrease discomfort, Improve function, Increase independence Activity Recommendations Activity Limitations: resume your previous activity . Instructions / Follow-Up Instructions / Follow-Up Possible Seizure vs TIA (Transient Ischemic Attack - Mini Stroke): - You were seen by neurology which questions that maybe this is related to a small seizure and your Keppra was increased to 1000 mg twice a day and a prescription was sent to your pharmacy - It seems that a TIA is less likely but cannot be completely ruled out as this is transient and doesn't leave any findings on imaging. - Imaging does so some stenosis (narrowing) of the right internal carotid artery. This is not something that needs surgery. Would recommend to continue your cholesterol medication to help reduce changes of plaque build-up from cholesterol. - Dr. Carl would like to follow-up with you in 2-3 weeks at the clinic to monitor for tolerance. Continue to follow with your [facility] doctor. Risk Factors for Stroke: You can reduce your chances of stroke by working with your medical provider to adopt a healthy lifestyle. Some specific ways to lower your chance of stroke are: * If you are a smoker, now is the time to stop smoking cigarettes * If you are diabetic, improve the control of your blood sugars * Avoid excessive amounts of alcohol * Control high blood pressure * Lose weight if you are overweight * Be sure to lead an active lifestyle * Eat a healthy diet low in salt, cholesterol and fat You should know about other risk factors for stroke that you are unable to control. These include: * Age 55 years or older * Male gender * Certain racial groups: , or / * Family History of Stroke, Mini stroke or Heart Attack * Sickle Cell Disease Follow Up: It is important for you to keep your follow up appointments with your medical provider. Current Hospital Diet Patient's current hospital diet: AHA Diet (Heart Healthy) Discharge Diet Recommended Diet: AHA Diet (Heart Healthy) Pending Studies Studies pending at discharge: no Laboratory Results Hemoglobin A1c Test 03/24/17 17:25 Range/Units Estimated Average Glucose 97 mg/dl Hemoglobin A1c 5.0 4.5-5.6 % Lipid Panel Test 03/25/17 05:27 Range/Units Triglycerides Level 123 0-150 mg/dl Cholesterol Level 132 0-200 mg/dl HDL Cholesterol 37 mg/dl Cholesterol/HDL Ratio 3.6 LDL Cholesterol, Calculated 70 mg/dl Medical Emergencies . Who to Call and When: Medical Emergencies: Call 911 immediately if you experience any of the following warning signs and symptoms of Stroke: * Sudden numbness or weakness of the face, arm or leg, especially on one side of the body * Sudden confusion, trouble speaking or understanding * Sudden trouble seeing in one or both eyes * Sudden trouble walking, dizziness, loss of balance or coordination * Sudden severe headache with no cause Do not delay calling 911 if you experience any warning signs or symptoms of a stroke. Delay in seeking medical attention may affect what treatments can be given to you. . Non-Emergent Contact Non-Emergency issues call your: Primary Care Provider Call Non-Emergent contact if: you have a fever, your pain is concerning you, you have any medication questions . . "Provider Documentation" section prepared by Heidy Castro. . Stroke Core Measures Reason no t-PA for Stroke: Contraindicated Reason no antithrom by day 2: Contraindicated Reason no antithrom at D/C: Contraindicated Reason no statin at D/C: Treatment provided - N/A Reason no anticoag w/a fib: Treatment not indicated VTE Core Measure Inpt VTE Proph given/why not?: T.E.D. Stockings, SCD's, Contraindicated
[2017-03-25 15:10] VITALS: BP 132/83; PULSE 82; TEMP 37.1; O2SAT 97
--- NOTE | 2017-03-25 16:18 | Discharge Summary ---
Discharge Summary Date of Service Mar 25, 2017. Discharge Summary Admission Date: Mar 24, 2017 at 19:40 Discharge Date: Mar 25, 2017 Discharge Disposition: Home Principal Diagnosis: Possible Seizure vs TIA Problems/Secondary Diagnoses: 1. HTN 2. Subdural Hematoma S/P Craniotomy 3. HLD 4. Prostate Cancer S/P Prostatectomy 5. Hypothyroidism 6. S/P L Rotator Cuff Repair Procedures: HEAD CT NONCONTRAST Findings: The paranasal sinuses and mastoid air cells are clear. Patient is status post interval left frontoparietal craniotomy for evacuation of a large left subdural hematoma. Significant decrease in size in the left extra-axial/subdural hematoma. This measures a maximal thickness at the high convexity of 1.9 cm and a maximal thickness of 1.2 cm at the left frontal lobe. This appears to demonstrate both acute and chronic hemorrhagic components. The midline shift has significantly improved and currently measures 3 mm to the right, previous measuring 11 mm. The small subacute subdural hematoma at the right high convexity has slightly decreased in size and currently measures up to 9 mm in thickness. Small amount of pneumocephalus on the left due to the recent postoperative change. Trace hyperdensity at the interhemispheric fissure may represent a tiny component of the subdural hematoma. No mass or acute infarct identified. Impression: 1. No acute infarct identified. 2. Interval decrease in size in the left subdural hematoma status post evacuation. This appears to demonstrate both acute on chronic hemorrhage. [address] follow-up is recommended to ensure stability. There has also been improvement in the right midline shift which now measures 3 mm. 4. Slight increase in size in the subacute subdural hematoma the right high convexity. ULTRASOUND OF THE CAROTID ARTERIES FINDINGS: Blood pressures were not assessed due to the presence of IV catheters. The carotid arteries are patent bilaterally and demonstrate antegrade flow. There is mild to moderate echogenic atherosclerotic plaque seen in the carotid bulbs, right greater than left. Normal doppler arterial waveforms are seen throughout. Velocity measurements are listed below. Common carotid peak systolic velocity (cm/sec): RIGHT: 81 LEFT: 100 ICA proximal peak systolic velocity (cm/sec): RIGHT: 132 LEFT: 94 ICA mid peak systolic velocity (cm/sec): RIGHT: 151 LEFT: 99 ICA distal peak systolic velocity (cm/sec): RIGHT: 102 LEFT: 71 ICA/CC peak systolic ratio: RIGHT: 1.9 LEFT: 1.0 Antegrade flow was shown in the vertebral arteries. The external carotid arteries are patent. IMPRESSION: 1. Findings suggest 50-60% stenosis within the proximal to midportion of the right internal carotid artery by velocity criteria. 2. There is no sonographic evidence of hemodynamically significant stenosis in the left carotid arterial system. 3. Antegrade flow is shown in the vertebral arteries EEG: A normal EEG does not rule out epilepsy if there is a strong clinical suspicion. Consultations: 1. Neurology Medication Reconciliation Changed Medications: Levetiracetam (Keppra) 1,000 Mg Tab 1 TAB PO BID for 30 Days, #60 TAB (Changed from: Levetiracetam (Keppra) 500 Mg Tab 500 Mg PO BID) Continued Medications: Acetaminophen (Tylenol) 500 Mg Tab 500 MG PO DAILY PRN for Pain, TAB Levothyroxine Sodium (Synthroid) 88 Mcg Tab 88 MCG PO QAM, TAB Metoprolol Tartrate (Lopressor) (Lopressor) 50 Mg Tab 50 MG PO QAM, TAB Simvastatin (Zocor) 20 Mg Tab 20 MG PO QPM, TAB Discharge Exam ROS: General/Constitutional: Denies fever/chills, fatigue, weakness ENT: Denies visual changes, nasal drainage, hearing loss, sore throat, trouble swallowing Cardiovascular: Denies chest pain, palpitations, edema Respiratory: Denies cough, sputum, SOB, wheezing, orthopnea GI: Denies nausea, vomiting, abdominal pain, constipation, diarrhea, melena/ hematochezia : Denies dysuria Musculoskeletal: Denies joint/muscle aches, swelling Neurologic: Denies dizziness/lightheadedness, numbness/tingling, weakness Hematologic/Lymphatic: Denies bleeding/clotting abnormalities Skin: Denies rash General Appearance: WDWN in NAD who is A&O x 3 HEENT: Head is normocephalic; large well approximated surgical incision to L side of head without erythema or drainage with dried blood; EOMI; PERRLA; Hearing grossly intact; Mucous membranes moist; Pharynx negative for exudate/ lesions Neck: Supple; Trachea midline; Neg JVD Heart: RRR with no M/G/R Lungs: CTA in all lung pozo bilaterally; Respirations unlabored; Neg accessory muscle use Abdomen: Soft, non-tender, non-distended; Positive BS x 4 quadrants Extremities: Capillary refill < 2 seconds; Neg cyanosis or edema; L arm in immobilizer with radial/ulnar pulses 2+ Neurological: Speech clear; Gross motor/sensory function intact with limitations to LUE given immobilizer; Neg focal neurologic deficits; facial movements symmetrical Psychiatric: Appropriate mood/affect Skin: Normal Color; Warm/Dry Hospital Course ADMISSION: Patient is a pleasant 61 y/o male, with PMHx of subdural hematoma s/ p craniotomy, HTN, HLD, prostate cancer s/p prostatectomy, and hypothyroidism, who presented to the ED because of dizziness, slurred speech, and R hand weakness that occurred this afternoon. Patient states symptoms lasted roughly 5 minutes. He was talking to his neighbors at the time of event. was present for episodes and confirms events. At this time, all symptoms have resolved. He admits to generally not feeling well this AM and ate very little, but cannot elaborate. Patient experienced a fall on 01/23/17. He was seen in ED at that time - diagnosed w/ L rotator cuff tear and discharged to home. On 02/24/17 patient had rotator cuff repaired by Dr. Osborne. On 03/17, patient was seen in ED for continued weakness and ambulatory dysfunction. An MRI showed subdural hematomas and patient was sent to [facility] for craniotomy. He was discharged from [facility] on 03/21. He was placed on Keppra for seizure prevention. He denies having any seizures. Dr. Yuan is [facility] physician. Dr. Matt spoke w/ [facility] physician who thought head CT looked stable; Also, talked to Dr. Carl who recommended increasing Keppra to 1000 mg from 500 mg- he took his evening dose of Keppra + additional IV 500 mg given. Patient denies any fever, chills, sweats, lightheadedness, vision changes, CP, palpitations, edema, SOB, wheezing, cough, abdominal pain, nausea, vomiting, diarrhea, urinary symptoms, melena, numbness/tingling, muscle/joint pain, anxiety/ depression, active bleeding, or new skin discoloration/changes. HOSPITAL COURSE: Mr. Barrios was admitted for possible Seizure vs TIA. Imaging shows improvements in hematomas and no acute intracranial findings. Neurological deficits have remained resolved without new complaints during admission. EEG was obtained but unremarkable. Neurology evaluated the patient and feel this could be a seizure but TIA could not be ruled out but is thought to be unlikely. Given hematomas, antiplatelet therapy is currently contraindicated. Will continue statin therapy. Home medications were resumed as previously prescribed except Keppra was increased to 1000 mg twice a day. He has an established appointment with Dr. Yuan in the coming weeks and Dr. Carl would like to follow-up in 2-3 weeks in the neurology clinic. Total Time Spent: Greater than 30 minutes This includes examination of the patient, discharge planning, medication reconciliation, and communication with other providers. Discharge Instructions Please refer to the electronic Patient Visit Report (Discharge Instructions) for additional information. Additional Copies To Dr. Freda Yuan; Moon Burk MD Reviewed: Pt Seen/Exam by Me History Pt has had no return of speech or UE use issues since prior to arrival to the ED. He feels like he would like to go home. Family agrees. Tolerating PO without issue. Denies chest pain, SOB. Agree with HPI/ROS as noted by PA. General Appearance: WD/WN, no apparent distress Eye Exam: bilateral eye normal inspection, bilateral eye other (normal sclera) Respiratory: normal breath sounds, no respiratory distress Cardiovascular: normal peripheral pulses, regular rate, rhythm Gastrointestinal: non tender, soft Extremities: non-tender, no pedal edema Neurologic/Psychiatric: housekeeping lead II-XII nml as tested, alert, normal mood/affect, oriented x 3, other (gait is WNL) Skin Characteristics: normal color, warm/dry, other (L sided incision site is clean and dry) Assessment/Plan Agree with plan as outlined above TIA vs seizure activity EEG neg CT head stable at presentation and again today Carotid US noted as neg for intervention steps Neuro feels increase keppra and monitor with close f/u with C.
[2017-03-25] MEDS ORDERED: LEVETIRACETAM 500 MG TAB PO SCH (21:00)
== END 2017-03-25 15:41 | disposition home or self-care (01) ==
LOC: C.EDB 17:01 → C.2T 19:40 → ENRESERV 19:58
PROVIDERS: ADMIT Internal Medicine; ATTEND Family Medicine
DX: R47.81 Slurred speech (principal); R29.898 Other symptoms and signs involving the musculoskeletal system; I10 Essential (primary) hypertension; S06.5X0D Traumatic subdural hemorrhage without loss of consciousness, subsequent encounter; Z98.890 Other specified postprocedural states; E78.5 Hyperlipidemia, unspecified; Z85.46 Personal history of malignant neoplasm of prostate; Z90.89 Acquired absence of other organs; E03.9 Hypothyroidism, unspecified

== ENCOUNTER 2017-03-26 23:20 | Emergency (ER) | payer OTHER ==
[~2017-03-26] VITALS: Ht 167.6 cm; Wt 88.1 kg
[~2017-03-26 23:20] MED LIST changes: -ASPI81TA28 PO; -KETO10TA PO; +KPP/1000 PO; -METO-217 PO; +METO50TA16 PO; -OXYC-57 PO
[2017-03-26 23:28] VITALS: TEMP 36.8; Ht 167.6 cm; Wt 88.1 kg
[2017-03-27] MEDS ORDERED: KPP/1000 PO (00:05)
--- NOTE | 2017-03-27 00:21 | EMERGENCY ROOM VISIT NOTE ---
History Report prepared by [place]: Boyd Vásquez Under the Supervision of: Dr. Ana Maria Chavez D.O. First contact with patient: 23:55 Chief Complaint: NEURO SYMPTOMS Stated Complaint: SLURRED SPEECH, LOSS OF MOVEMENT LEFT SIDE Nursing Triage Summary: Patient ambulatory to triage with an upright and steady gait. Patient's is present. Patient sustained a fall on January 23. Patient was brought to the ER on and was found to have a slow intracranial bleed. He was life flighted to [facility] where he had brain surgery on 03/18/17. Incision to the left head is well approimated. No drainage noted. Patient was placed on Keppra after the brain surgery for seizure prevention. Patient was in the ER on 03/24/17 with stuttering speech and inability to find his words. He was kept overnight for observation. Patient was discharged home last night with an increased dose of Keppra. The episodes, per his , have increased in frequency since his return home. She feels as though, when he gets frustrated or upset, the episodes are worse and last longer. Patient is having difficulty with using the right hand for eating, writing and fine motor skills since his discharge home. Patient denies any pain at this time. History of Present Illness The patient is a 61 year old male who presents to the Emergency Room with complaints of intermittent slurred speech that began 3 days ago. Patient is present in the ED with his . states the symptoms were not present 2 days ago. She adds that the symptoms have occurred more than usual today. states that the symptoms are exacerbated when the patient is excited or upset. Patient has associated symptoms of the intermittent inability to "use his right hand". states the patient had difficulty at dinner tonight "picking up his fork and cutting his food". states that the patient has no cognition problems. Patient denies symptoms of abdominal pain, urinary symptoms, bowel symptoms, and leg problems. Patient states that he is right-handed. Pertinent past surgical history includes a craniotomy 9 days ago and shoulder surgery. states that the patient was "fine" after leaving the hospital following the brain surgery. adds that Dr. Freda Yuan performed the patient's brain surgery. 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 Source of History: patient Onset: 3 days ago Timing: intermittent Modifying Factors (Worsening): other (Being excited or upset) Associated Symptoms: No abdominal pain, No urinary symptoms Note: Patient has intermittent inability to use his right hand. Patient denies bowel symptoms and leg problems. Review of Systems See HPI for pertinent positives & negatives. A total of 10 systems reviewed and were otherwise negative. Past Medical & Surgical Medical Problems: (1) Hypertension (2) Kidney stone (3) Stroke-like symptoms Family History FHx: heart disease Hypertension Social History Smoking Status: Never Smoker Alcohol Use: occasionally Marital Status: Housing Status: lives with significant other Current/Historical Medications Scheduled Levetiracetam (Keppra), 1,000 MG PO BID Levothyroxine Sodium (Synthroid), 88 MCG PO QAM Metoprolol Tartrate (Lopressor) (Lopressor), 50 MG PO QAM Simvastatin (Zocor), 20 MG PO QPM Scheduled PRN Acetaminophen (Tylenol), 500 MG PO DAILY PRN for Pain Allergies Coded Allergies: No Known Allergies (Unverified , 03/27/17) Physical Exam Vital Signs Date Time Temp Pulse Resp B/P (MAP) Pulse Ox O2 Delivery O2 Flow Rate FiO2 03/27/17 07:53 84 22 135/82 100 Nasal Cannula 2.0 03/27/17 07:38 87 16 135/82 100 Nasal Cannula 2.0 03/27/17 07:18 97 Nasal Cannula 2.0 03/27/17 07:15 95 24 116/67 90 Room Air 03/27/17 06:50 99 18 136/95 97 Room Air 03/27/17 05:08 97 18 141/99 95 Room Air 03/27/17 04:54 100 03/27/17 03:00 82 18 153/89 97 Room Air 03/27/17 02:00 84 18 142/94 98 Room Air 03/27/17 00:39 83 18 128/86 96 Room Air 03/26/17 23:50 88 03/26/17 23:28 36.8 92 20 156/95 97 Room Air Physical Exam HEENT: Head - normocephalic and atraumatic. Pupils are equal, round, and reactive to light. Extraocular eye muscles are intact and sclera are anicteric. Ears - bilaterally patent canals with noninjected tympanic membranes and no evidence of hemotympanum. Nose - moist nasal mucosa without discharge. Mouth - moist buccal mucosa. Oropharynx is nonerythematous and there is no tonsillar exudate or edema noted. Neck: Supple; no JVD, nuchal rigidity, cervical lymphadenopathy, or auscultated bruits. Heart: Regular rate and rhythm. There is a normal S1 and S2 with no murmurs, clicks, or gallops appreciated. Lungs: Clear to auscultation bilaterally with no wheezes, rales, or rhonchi. Abdomen: Soft, completely nontender, nondistended, with good bowel sounds. There are no palpable pulsatile masses or hepatosplenomegaly. There is no guarding, rigidity, or rebound noted. Extremities: No evidence of cyanosis, clubbing, or edema. There are easily palpable peripheral pulses. Neuro:The patient is awake and alert, oriented to day, time, and place. Slight confusion with some dates including today's date. Muscle strength is 5/5 in all 4 extremities. 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 There are no cerebellar signs. Medical Decision & Procedures ER Provider Diagnostic Interpretation: Radiology results as stated below per my review and the radiologist's interpretation: CT HEAD: Comparison: 03/24/2017 Status post left-sided craniotomy and partial evacuation of a left cerebral convexity subdural hematoma. There is persistent blood products and gas along the left convexity which is grossly unchanged in size but with decreased attenuation of the blood products. There is mild mass effect on the adjacent parenchyma, left lateral ventricle and approximately 5 mm rightward midline shift. Radiologist: El Stevens MD MRI HEAD: Comparision: CT head earlier same day and MRI head 03/17/17 Bilateral subdural hematomas as seen on prior CT, post left craniotomy and evacuation of left craniotomy. Mass effect on underlying sulci and 3mm midline shift to right. Left-sided subdural hematoma measures up to 1.2cm thick, compared with 2.7cm thick on MRI 03/17/17. Right-sided subdural hematoma is essentially stable from prior MRI. T1/FLAIR hyperintensity within the left frontal and parietal sulci, compatible with subarachnoid hemorrhage is new from prior MRI. No edema. No evidence of acute infarct. Radiologist: Yvan Ferguson MD HEAD WITHOUT CONTRAST (CT) CLINICAL HISTORY: 61 years-old Male presenting with eval for worsening SAH, abnormal speech and word finding. TECHNIQUE: Multidetector CT imaging of the head was performed without the use of intravenous contrast. IV contrast: None. A dose lowering technique was used consistent with the principles of ALARA (as low as reasonably achievable). COMPARISON: Brain MR from 03/27/2017 at 4:[address] head from 03/27/2017 at 12:[address] DOSE (mGy.cm): The estimated cumulative dose is 537.48 mGy.cm. FINDINGS: Youth Services Specialist topogram: Craniotomy. Left frontoparietal craniotomy for evacuation of the left subdural hematoma evident. Multiple foci of gas within the collection, postsurgical change. Heterogeneously hyperdense residual subdural collection along the left cerebrum consistent with blood products of varying ages. The collection is overall bilobed with the anterior/frontal component measuring up to 10 mm in thickness, previously 10 mm, and the posterior/parieto-occipital component measuring up to 18 mm in thickness, previously 20 mm. This is not significantly changed. More limited subdural collection along the right frontal convexity, which is low-density consistent with evolving nonacute blood products. This collection measures 12 mm in maximal thickness, previously 13 mm. This is also not significant changed from prior. 3 mm of rightward midline shift unchanged. Regional mass effect on the left cerebrum is also unchanged. No CT evidence of acute subarachnoid hemorrhage. No hydrocephalus. No acute vascular territory infarct. Paranasal sinuses and mastoid air cells clear. Soft tissue swelling over the craniotomy site also postsurgical change. IMPRESSION: 1. No CT evidence of acute subarachnoid hemorrhage. No progression of hemorrhage. The recent findings on brain MR of T1 hyperintensity, FLAIR hyperintensity within the sulci again is felt to be most compatible with subacute subarachnoid hemorrhage. The finding on brain MR is felt less likely to represent leptomeningeal vessels with slow flow given the extent of signal abnormality and lack of serpiginous morphology to suggest a vascular etiology. 2. Postsurgical change of left craniotomy for left subdural hematoma evacuation. 3. Stable bilateral subdural hematomas with unchanged mass effect and 3 mm of rightward midline shift. Electronically signed by: Sam Brumfield M.D. 03/27/2017 7:44 AM Medications Administered Medications (Trade) Dose Ordered Sig/Diamante Route Start Time Stop Time Status Last Admin Dose Admin Lorazepam (Ativan Inj) 1 mg NOW STAT IV 03/27/17 03:32 03/27/17 03:34 DC 03/27/17 03:37 1 MG Phenytoin Sodium 1320 mg/Sodium Chloride 126.4 ml @ 275 mls/hr NOW STAT IV 03/27/17 06:05 03/27/17 06:32 DC 03/27/17 06:45 275 MLS/HR Ondansetron HCl (Zofran Inj) 4 mg STK-MED ONCE .ROUTE 03/27/17 07:11 03/27/17 07:12 DC 03/27/17 07:14 4 MG Lorazepam (Ativan Inj) 2 mg STK-MED ONCE .ROUTE 03/27/17 08:05 03/27/17 08:06 DC 03/27/17 08:05 0.5 MG Procedure Ativan Inj 1mg IV Zofran Inj 4mg. IV normal saline solution IV Dilantin ECG Indication: weakness Rate (beats per minute): 84 Rhythm: normal sinus Findings: no acute ischemic change, no ectopy ED Course 0001: Past medical records reviewed. The patient was evaluated in room B9. A complete history and physical exam was performed. A twelve-lead EKG was obtained as described above. 0015: Patient's electrocardiogram was interpreted by me. The patient will go for CT scan of the brain to compare to the one that he had from 3 days ago. 0126: I reassessed the patient and told him he was getting an MRI. There is no significant difference in CAT scans. Patient was pre-medicated prior to the MRI due to a history of claustrophobia. 0235: The patient is resting comfortably at this time. He had no return of his neurological symptoms. He denies any headache. 0332: Ativan Inj 1mg IV prophylactically for the MRI 0540: I reviewed the results of the MRI with the patient and his . I discussed the case with Dr. Lord at [facility]. He except the patient in transfer and suggested starting him on a loading dose of Dilantin. 0559: Phenytoin Sodium 1320mg IV 0700: The patient began to complain of severe right arm pain as he was on the Dilantin drip. Nursing staff started him on a 250 mL bolus of saline which seemed to help with the pain. He also began to complain of nausea 0711: Zofran Inj 4mg IV. When the patient's right arm began to hurt from the Dilantin, he seemed to become very agitated. There was increased confusion and an episode of hypotension. The patient will go back for repeat CT scan of the brain to rule out worsening hemorrhage before his transferred to [facility] in an ambulance. CT scan of the brain was unchanged from one earlier tonight. I spent a great of time at the patient's bedside as it appeared that he was somewhat agitated but not necessarily confused or with an altered mental status. The patient's blood pressure rebounded nicely. I discussed the case with the coke drawer hand at the bedside. 0736: Upon reevaluation, I discussed findings and results with him. He verbalized agreement of the treatment plan. The patient will be transferred. Medical Decision The patient is a 61 year old male who presents to the ED with slurred speech and right hand weakness which has resolved. Differential diagnosis includes enlarging subdural hematoma, acute infarction, TIA, and seizure. The patient's previous medical records were reviewed at length. It seems that the patient had suffered a subdural hematoma which he had craniotomy with evacuation at [facility]. He had resolution of his neurological symptoms after that. Approximately 3 days ago, the patient had recurrent right arm weakness and slurred speech for which she was evaluated by neurology and kept here in the hospital. He had an EEG and had his Keppra dose increased. Today, the patient had recurrent right arm weakness and slurred speech that seemed to last longer. Repeat CAT scan showed no enlargement of the subdural hematoma or significant increase to the midline shift. He went for an MRI of the brain which showed stable appearing subdural hematoma but did show a new subarachnoid hemorrhage. I discussed the case with the neurosurgeons at [facility] there is accepted the patient in transfer. The patient was loaded with IV Dilantin. He will continue to take his dose of Keppra. At the end of the Dilantin infusion, the patient began to complain of right arm pain and had an episode of nausea, pallor, and hypotension. This could've been a side effect from the medication. However, his neuro status did not seem to improve very quickly. He went for repeat CT scan of the brain which was unchanged from earlier in the day. Upon returning from radiology, the patient did not seem as agitated. His blood pressure had returned to normal after receiving IV crystalloid therapy. His mental status seemed slightly improved although he was easily agitated and slightly restless. The patient will be transferred by ALS ambulance to [facility] for evaluation by neurosurgery. Medication Reconcilliation Current Medication List: was personally reviewed by me Blood Pressure Screening Patient's blood pressure: Elevated blood pressure Further evaluated as an inpatient. Consults Time Called: 113 Consulting Physician: Dr. Carl - Neurologist of [facility] [place] Returned Call: [phone] Discussed the patient's case. The patient will be evaluated for further management. Additional Consults: Time Called: 529 Consulted Physician: Dr. Macias - [facility] Returned Call: [phone] Additional Comments: Discussed the patient's case. Dr. Macias recommends loading the patient with IV phenytoin. The patient will be evaluated for further management. Time Called: 07 Consulted Physician: Dr. Brumfield - [facility] Radiologist Returned Call: [phone] Additional Comments: Discussed the patient's case. The patient will be evaluated for further management. Impression Primary Impression: Subarachnoid hemorrhage Additional Impression: Subdural hematoma Scribe Attestation The scribe's documentation has been prepared under my direction and personally reviewed by me in its entirety. I confirm that the note above accurately reflects all work, treatment, procedures, and medical decision making performed by me. Departure Information Dispostion Being Evaluated By Hospitalist Referrals Moon Burk MD (PCP) Forms HOME CARE DOCUMENTATION FORM, IMPORTANT VISIT INFORMATION, WORK / SCHOOL INSTRUCTIONS Patient Instructions My [facility] Problem Qualifiers
[2017-03-27] MEDS ORDERED: LORAZEPAM 2 MG/ML 1 ML VIAL IV STA (03:32)
--- NOTE | 2017-03-27 05:58 | DIAGNOSTIC IMAGING REPORT ---
BRAIN COMBO CLINICAL HISTORY: 61 years-old Male presenting with eval for infarct and worsening subdural, slurred speech, mobility issues with right hand, fall in January, history of craniotomy with subdural hematoma, history of prostate cancer. TECHNIQUE: Multisequence, multiplanar MR imaging of the brain was performed before and after the administration of intravenous contrast. IV contrast: 8.5 mL of Gadavist. COMPARISON: CT head from earlier the same day and MR brain from 03/17/2017. FINDINGS: Redemonstration of left parietal craniotomy for evacuation of left subdural hematoma. Small superficial fluid collection along the inferior aspect of the craniotomy site, which does not restrict diffusion (series 12 image 13), likely seroma. Foci of gas in the collection related to evacuation. Residual complex T2 hyperintense, T1 hyperintense blood products noted along the left cerebral convexity in a bilobed distribution with the anterior/frontal component measuring up to 15 mm in thickness and the posterior/parieto-occipital component measuring up to 16 mm in thickness. This is not significantly changed from 03/25/2017. The right subdural hematoma is limited to the parietal vertex and measures 11 mm in thickness. Overall mass effect from the collections is unchanged. Subarachnoid FLAIR hyperintensity, presumably subarachnoid hemorrhage, along the left frontal convexity is new since prior MR and was not readily evident on recent CTs. Brain parenchyma otherwise normal in appearance with preserved deng-white differentiation. 3 mm of rightward midline shift unchanged. No restricted diffusion to suggest acute ischemia. T2 skull base flow voids preserved. Expected postoperative pachymeningeal enhancement. No abnormal brain parenchymal enhancement. Slow flow within sulcal vessels of the left cerebral convexity. IMPRESSION: 1. Postoperative changes of left craniotomy for left subdural hematoma evacuation. No significant change in size and associated mass effect of the residual left subdural blood products. Stable smaller right subdural hematoma near the vertex. 2. Unchanged 3 mm of rightward midline shift (subfalcine herniation). 3. Evidence of subarachnoid FLAIR hyperintensity is presumably subarachnoid hemorrhage, which was not visible on most recent CT. The report will be called/faxed according to standard departmental protocol. Electronically signed by: Sam Brumfield M.D. 03/27/2017 5:56 AM Dictated Date/Time: 03/27/2017 5:37 AM
[2017-03-27] MEDS ORDERED: PHENYTOIN SOD INJ 50 MG/ML 5 ML VIAL IV STA (05:59)
[2017-03-27] MEDS ORDERED: PHENYTOIN INFUSION IV STA (06:05)
[2017-03-27] MEDS ORDERED: SODIUM CHLORIDE 0.9% IV STA (06:05)
--- NOTE | 2017-03-27 06:19 | DIAGNOSTIC IMAGING REPORT ---
HEAD WITHOUT CONTRAST (CT) CLINICAL HISTORY: 61 years-old Male presenting with eval for enlarging subdural hematoma. TECHNIQUE: Multidetector CT imaging of the head was performed without the use of intravenous contrast. IV contrast: None. A dose lowering technique was used consistent with the principles of ALARA (as low as reasonably achievable). COMPARISON: CT head performed on 03/25/2017 and MR brain from 03/17/2017. CT DOSE (mGy.cm): The estimated cumulative dose is 614.27 mGy.cm. 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 Left frontoparietal craniotomy for evacuation of the left subdural hematoma evident. Multiple foci of gas within the collection, postsurgical change. Heterogeneously hyperdense residual subdural collection along the left cerebrum consistent with blood products of varying ages. The collection is overall bilobed with the anterior/frontal component measuring up to 10 mm in thickness, previously 12 mm, and the posterior/parieto-occipital component measuring up to 20 mm in thickness, previously 19 mm. This is overall not significantly changed. More limited subdural collection along the right frontal convexity, which is low-density consistent with evolving nonacute blood products. This collection measures 13 mm in maximal thickness, previously 10 mm, and is more limited to the vertex. This is also not significant changed from prior. 3-4 mm of rightward midline shift unchanged. Regional mass effect on the left cerebrum is also unchanged. No CT evidence of new hemorrhage, however, please see separately dictated MR of the brain performed subsequently. No hydrocephalus. No downward tonsillar herniation. No acute vascular territory infarct. Paranasal sinuses and mastoid air cells clear. IMPRESSION: 1. Postsurgical change of left craniotomy for left subdural hematoma evacuation. No significant change in the residual left subdural blood products. Persistent mass effect and 3 mm of rightward midline shift. No significant change in smaller evolving right subdural hematoma. No new hemorrhage by CT. However, please see separately dictated MR of the brain performed subsequently. Electronically signed by: Sam Brumfield M.D. 03/27/2017 6:18 AM Dictated Date/Time: 03/27/2017 6:12 AM
[2017-03-27] MEDS ORDERED: ONDANSETRON INJ 2 MG/ML 2 ML VIAL ONE (07:11)
[2017-03-27 07:18] VITALS: O2SAT 97
--- NOTE | 2017-03-27 07:45 | DIAGNOSTIC IMAGING REPORT ---
HEAD WITHOUT CONTRAST (CT) CLINICAL HISTORY: 61 years-old Male presenting with eval for worsening SAH, abnormal speech and word finding. TECHNIQUE: Multidetector CT imaging of the head was performed without the use of intravenous contrast. IV contrast: None. A dose lowering technique was used consistent with the principles of ALARA (as low as reasonably achievable). COMPARISON: Brain MR from 03/27/2017 at 4:[address] head from 03/27/2017 at 12:[address] DOSE (mGy.cm): The estimated cumulative dose is 537.48 mGy.cm. 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 Left frontoparietal craniotomy for evacuation of the left subdural hematoma evident. Multiple foci of gas within the collection, postsurgical change. Heterogeneously hyperdense residual subdural collection along the left cerebrum consistent with blood products of varying ages. The collection is overall bilobed with the anterior/frontal component measuring up to 10 mm in thickness, previously 10 mm, and the posterior/parieto-occipital component measuring up to 18 mm in thickness, previously 20 mm. This is not significantly changed. More limited subdural collection along the right frontal convexity, which is low-density consistent with evolving nonacute blood products. This collection measures 12 mm in maximal thickness, previously 13 mm. This is also not significant changed from prior. 3 mm of rightward midline shift unchanged. Regional mass effect on the left cerebrum is also unchanged. No CT evidence of acute subarachnoid hemorrhage. No hydrocephalus. No acute vascular territory infarct. Paranasal sinuses and mastoid air cells clear. Soft tissue swelling over the craniotomy site also postsurgical change. IMPRESSION: 1. No CT evidence of acute subarachnoid hemorrhage. No progression of hemorrhage. The recent findings on brain MR of T1 hyperintensity, FLAIR hyperintensity within the sulci again is felt to be most compatible with subacute subarachnoid hemorrhage. The finding on brain MR is felt less likely to represent leptomeningeal vessels with slow flow given the extent of signal abnormality and lack of serpiginous morphology to suggest a vascular etiology. 2. Postsurgical change of left craniotomy for left subdural hematoma evacuation. 3. Stable bilateral subdural hematomas with unchanged mass effect and 3 mm of rightward midline shift. Electronically signed by: Sam Brumfield M.D. 03/27/2017 7:44 AM Dictated Date/Time: 03/27/2017 7:33 AM
[2017-03-27 07:53] VITALS: BP 135/82; PULSE 84; O2SAT 100
[2017-03-27] MEDS ORDERED: LORAZEPAM 2 MG/ML 1 ML VIAL ONE (08:05)
== END 2017-03-27 08:17 | disposition short-term general hospital (02) ==
LOC: C.EDB 23:23
DX: I60.9 Nontraumatic subarachnoid hemorrhage, unspecified (principal); S06.5X0D Traumatic subdural hemorrhage without loss of consciousness, subsequent encounter; W19.XXXD Unspecified fall, subsequent encounter; I10 Essential (primary) hypertension; Z87.442 Personal history of urinary calculi

== ENCOUNTER 2024-03-26 05:04 | Observation (INO) ==
--- NOTE | 2024-02-20 11:50 | PAT Medication Instructions ---
Medication Instructions Date of Service February 20, 2024 Home Medications Medication Instructions Recorded alprazolam 0.5 mg tablet 0.5 mg PO DAILY PRN before flying 08/26/20 #4 tabs levetiracetam 1,000 mg tablet 500 mg (1/2 x 1,000 mg) PO BID #90 02/10/24 tabs metoprolol succinate 50 mg 50 mg PO QAM #90 tabs 02/10/24 tablet,extended release 24 hr simvastatin 20 mg tablet 20 mg PO QPM #90 tabs 02/10/24 acetaminophen 500 mg tablet (Tylenol Extra Strength) 500 mg PO Q6H PRN Pain alprazolam 0.5 mg tablet 0.5 mg PO DAILY PRN before fly loratadine 10 mg tablet 10 mg PO QAM levetiracetam 1,000 mg tablet 500 mg (1/2 x 1,000 mg) PO BID metoprolol succinate 50 mg tablet,extended release 24 hr 50 mg PO QAM simvastatin 20 mg tablet 20 mg PO QPM levothyroxine 112 mcg tablet 112 mcg PO QAM Continue as directed alprazolam 0.5 mg tablet 0.5 mg PO DAILY PRN (if needed) DO NOT take the morning of surgery loratadine 10 mg tablet 10 mg PO QAM Take morning of surgery With a small sip of water, OTHERWISE NOTHING TO EAT OR DRINK AFTER MIDNIGHT: acetaminophen 500 mg tablet (Tylenol Extra Strength) 500 mg PO Q6H PRN Pain (if needed) levetiracetam 1,000 mg tablet 500 mg (1/2 x 1,000 mg) PO BID metoprolol succinate 50 mg tablet,extended release 24 hr 50 mg PO QAM levothyroxine 112 mcg tablet 112 mcg PO QAM Take evening before surgery acetaminophen 500 mg tablet (Tylenol Extra Strength) 500 mg PO Q6H PRN Pain (if needed) levetiracetam 1,000 mg tablet 500 mg (1/2 x 1,000 mg) PO BID simvastatin 20 mg tablet 20 mg PO QPM Other Notes If you have any questions please call us at [phone] or [phone] or [phone] or [phone]
--- NOTE | 2024-02-29 09:51 | Anesthesiology Consultation ---
Date of Service February 29, 2024 Assessment & Plan (1) Encounter for pre-operative examination: Chart Review Chart Review: Acceptable Risk for Surgery and Patient seen in Pre Admission Testing Pt currently scheduled as 23 hours observation. If surgeon decides to change patient to Same Day Joint, patient would be acceptable risk for TKA, pending patient is motivated, has good support and surgeon's office completes [facility] Program preop requirements. Per PAT appt on 02/29/24, no recent illness/disease exposures, illness related symptoms, or recent illness/disease positive tests. Will leave to surgeon's discretion if preop Covid testing needed Teaching & Discussion Pre-Anesthesia Teaching/Discussion Notes: Instructed NPO after midnight before surgery,except medications with 15 cc of water. Medication instructions provided according to the PAT guidelines. History Surgery Operation Date: 03/26/24 11:00 Proposed Procedures p Left Total Knee Arthroplasty - Edmundo Osborne, Height/Weight Height: 5 ft 6 in Weight: 96.8 kg Allergies Allergy/AdvReac Type Severity Reaction Status Date / Time No Known Allergies Allergy Verified 02/17/24 11:17 Medications Home Medications Medication Instructions Recorded Confirmed Last Taken acetaminophen 500 mg tablet 500 mg PO Q6H PRN Pain 04/24/19 02/17/24 07/14/21 (Tylenol Extra Strength) alprazolam 0.5 mg tablet 0.5 mg PO DAILY PRN before flying 08/26/20 02/17/24 Unknown #4 tabs loratadine 10 mg tablet 10 mg PO QAM 07/10/21 02/17/24 07/15/21 levetiracetam 1,000 mg tablet 500 mg (1/2 x 1,000 mg) PO BID #90 02/10/24 02/17/24 Unknown tabs metoprolol succinate 50 mg 50 mg PO QAM #90 tabs 02/10/24 02/17/24 Unknown tablet,extended release 24 hr simvastatin 20 mg tablet 20 mg PO QPM #90 tabs 02/10/24 02/17/24 Unknown levothyroxine 112 mcg tablet 112 mcg PO QAM 02/17/24 02/17/24 Unknown Past Medical History Medical History (Updated 02/29/24 @ 10:43 by Karen García PA-C) Hearing loss in right ear Also with decreased hearing in left ear- wears hearing aid in left ear High cholesterol Hypertension Hypothyroidism Kidney stones no recent issues Prostate cancer (~12/2015) s/p prostatectomy - no chemo or XRT Seizure 02/2017 secondary to subdural hematoma- no grand mal seizure- loss of some gross motor skills s/p subdural hematoma surgery and placed on keppra. follows with [facility]. no issues since 2017 Sleep apnea CPAP HS Subdural hematoma 02/2017 reason for keppra--followed with neurologist in [place] (now follows [facility]) Exercise / Class Metabolic Activity II 4-5 Yardwork/Stairs/Walk up hill (one flight of stairs- no chest pain or SOB ) Past Family History Family History Father Hypertension Renal failure Mother Hypertension Coronary arteriosclerosis Myocardial infarction Other Heart disease No family history of adverse response to anesthesia Prostate cancer Denies family history of Ovarian cancer Diabetes Breast cancer Lung cancer Colorectal cancer Stroke Past Surgical History Surgical History History of colonoscopy History of craniotomy removal of subdural hematoma 02/2017 @ [facility] History of lithotripsy History of prostate biopsy malignant History of repair of left rotator cuff History of tooth extraction History of wisdom tooth extraction Hx of prostatectomy 2015 [facility] Past Anesthesia History No Hx of Anesthesia Complications and No Family Hx of Anesthesia Complications History of PONV No Hx of PONV and No Hx of Motion Sickness Social History Smoking Status: Never smoker Do You Dip or Chew Tobacco: No (quit age 29) Hx Alcohol Use: Yes Alcohol type: beer, wine and hard liquor alcohol intake frequency: holidays/special occasions only Hx Substance Use: No substance use type: does not use Review of Systems Patient denies chest pain, shortness of breath, dyspnea on exertion, reflux, cough, wheezing, palpitations. No hx of stroke, NC. No hx of blood clots or blood transfusions Physical Exam Vital Signs VITALS BP 145/88 P 71 TEMP 97.6 SP02 93% RESP 16 Constitutional no acute distress ENMT Mouth: no TMJ clicking Thyromental Distance: > or= 3.5 Finger Breadths (3.5) Mallampati Class: II Missing molar Permanent bridge to bottom front teeth Caps and crowns to side teeth Neck neck extension not limited Respiratory normal respiratory effort; no respiratory distress Auscultation: lungs clear to auscultation bilaterally; no wheezes Cardiovascular Rate/Rhythm: regular rate and regular rhythm Heart Sounds: no murmur Vessels: no carotid bruit Musculoskeletal Spine: no pain with cervical ROM Extremities: extremities normal to inspection Psychiatric Orientation: alert Lab Results Anesthesia Preop Results Results Anesthesia Widget: WBC 7.48 K/ul (4.8-10.8) 02/29/24 Hgb 14.3 g/dl (14.0-18.0) 02/29/24 Hct 42.6 % (42.0-52.0) 02/29/24 Plt 214 K/uL (130-400) 02/29/24 Na 141 mmol/L (136-145) 02/29/24 K 4.3 mmol/L (3.5-5.1) 02/29/24 Cl 105 mmol/L (98-107) 02/29/24 CO2 33 mmol/L (21-32) H 02/29/24 BUN 14 mg/dl (6-23) 02/29/24 Creat 0.94 mg/dl (0.6-1.4) 02/29/24 Glucose Level 89 mg/dl (70-99(Fasting)) 02/29/24 PT 10.7 Seconds (9.0-12.0) 02/29/24 PTT 28 Seconds (21-31) 02/29/24 INR 1.0 (0.9-1.1) 02/29/24 HA1c 5.9 % (4.5-5.6) H 02/02/24 Blood Type O Positive 02/29/24 Antibody Screen NEGATIVE 02/29/24 Testing Electrocardiogram Date: 02/29/24 Findings: + NSR @ (69bpm) Normal EKG per cardio Chest X-Ray Date: 02/29/24 Findings: + NAD
--- NOTE | 2024-03-22 12:23 | History & Physical Report ---
Date of Service March 22, 2024 Assessment & Plan (1) Left knee DJD: We will proceed with a left total knee arthroplasty. Postoperatively he will be started on aspirin for DVT prophylaxis and kept overnight in the hospital for postop medical management. He plans to have [facility] physical therapy at home upon discharge. History of Present Illness Chief Complaint: Osteoarthritis of the left knee . Primary Care Provider: Moon Burk MD Darshan is a pleasant 68-year-old male who has been dealing with chronic increasing left knee pain. X-rays and clinical examination been diagnostic for advanced osteoarthritis of the left knee. After failed conservative treatment, he has elected to proceed with a left total knee arthroplasty. Allergies Allergy/AdvReac Type Severity Reaction Status Date / Time No Known Allergies Allergy Verified 02/17/24 11:17 Home Medications Medication Instructions Recorded Confirmed Type acetaminophen 500 mg tablet 500 mg PO Q6H PRN Pain 04/24/19 02/17/24 History (Tylenol Extra Strength) alprazolam 0.5 mg tablet 0.5 mg PO DAILY PRN before flying 08/26/20 02/17/24 Rx #4 tabs loratadine 10 mg tablet 10 mg PO QAM 07/10/21 02/17/24 History levetiracetam 1,000 mg tablet 500 mg (1/2 x 1,000 mg) PO BID #90 02/10/24 02/17/24 Rx tabs metoprolol succinate 50 mg 50 mg PO QAM #90 tabs 02/10/24 02/17/24 Rx tablet,extended release 24 hr simvastatin 20 mg tablet 20 mg PO QPM #90 tabs 02/10/24 02/17/24 Rx levothyroxine 112 mcg tablet 112 mcg PO QAM 02/17/24 02/17/24 History Past Med/Surg History Problem List Encounter for pre-operative examination Bilateral primary osteoarthritis of knee Tear of lateral meniscus of right knee Right knee DJD History of colon polyps Hyperglycemia Effusion, left knee Left knee pain Left knee DJD Hyperlipidemia Medial meniscus tear Nocturnal hypoxemia (Chronic) Moderate obstructive sleep apnea (Chronic) Seizure (Chronic) last seizure/episode (not grand mal seizure) loss of some gross motor skills s/p supdural hematoma surgery and placed on keppra. follows with [facility] annually. Periodic limb movement disorder (Chronic) Insomnia (Chronic) Hypothyroidism (Chronic) Nephrolithiasis (Chronic) Obesity (Chronic) Depression (Chronic) Anxiety (Chronic) Hypertension Medical History Seizure 02/2017 secondary to subdural hematoma- no grand mal seizure- loss of some gross motor skills s/p subdural hematoma surgery and placed on keppra. follows with [facility]. no issues since 2017 Hypertension Kidney stones no recent issues Hypothyroidism Sleep apnea CPAP HS High cholesterol Prostate cancer (~12/2015) s/p prostatectomy - no chemo or XRT Hearing loss in right ear Also with decreased hearing in left ear- wears hearing aid in left ear Subdural hematoma 02/2017 reason for keppra--followed with neurologist in [place] (now follows [facility]) Surgical History History of craniotomy removal of subdural hematoma 02/2017 @ [facility] History of repair of left rotator cuff History of lithotripsy History of colonoscopy History of prostate biopsy malignant Hx of prostatectomy 2015 [facility] History of tooth extraction History of wisdom tooth extraction Family History Father Hypertension Renal failure Mother Hypertension Coronary arteriosclerosis Myocardial infarction Other Heart disease No family history of adverse response to anesthesia Prostate cancer Denies family history of Ovarian cancer Diabetes Breast cancer Lung cancer Colorectal cancer Stroke Social History Smoking Status: Never smoker Tobacco Type: Smokeless Tobacco (Dip or Chew) Second Hand Exposure: Yes (hx); Do You Dip or Chew Tobacco: No (quit age 29); Tobacco Cessation Education Requested by Patient: No Hx Alcohol Use: Yes Alcohol type: beer, wine and hard liquor Alcohol Intake Frequency: 2-4 x/Month Alcohol Intake Frequency Comment: 1 beer per week Hx Substance Use: No Preferred Language: Hebrew Communication Ability: Effective Visual Impairment: No Limitations Hearing Ability: Use of Hearing Aid Senior Talent Management Consultant Required: No Beliefs That Will Affect Care: None marital status: Current Living Situation: Spouse current occupational status: retired 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 Physical Exam On physical exam the left knee, he has a slight varus formerly. Tenderness palpation of the distal medial femoral condyle and over the medial joint line.. Constitutional WD/WN, vitals as above Eyes PERRL, conjunctivae normal, anicteric sclerae ENMT external ear and nose normal, oropharynx normal Neck trachea midline, no thyromegaly Respiratory normal respiratory effort Cardiovascular RRR, no murmur, no edema Gastrointestinal (Abdomen) normal bowel sounds, soft, nontender, no hepatosplenomegaly Psychiatric A+Ox3, euthymic affect Results & Data Results & Data Laboratory Results . Diagnostic Findings X-rays the left knee show advanced osteoarthritis with joint space narrowing, osteophyte formation, and [id number] articulation. PG Care Time/CCT Total # of Minutes Spent Total Time Spent with Patient: Total time spent is greater than 50% in coordination of care (as documented) at patient's floor/unit and/or counseling patient: Coding Level of Care Code None Diagnoses Left knee DJD M17.12
[2024-03-26] MEDS ORDERED: ATROPINE SULFATE 0.1 MG/ML 10ML SYR IV PRN (05:49)
[2024-03-26] MEDS ORDERED: fentaNYL citrate PF 100 MCG/2 ML VIAL IV PRN (05:49)
[2024-03-26] MEDS ORDERED: ONDANSETRON INJ 2 MG/ML 2 ML VIAL IV PRN ×2 (05:49→09:37)
[2024-03-26] MEDS ORDERED: ePHEDrine sulfate 50 MG/ML AMP IV PRN (05:49)
[2024-03-26] MEDS: FAMOTIDINE 20 MG TAB PO SCH (05:54)
[2024-03-26] MEDS: ACETAMINOPHEN 500 MG TAB PO SCH ×2 (05:54→14:26)
[2024-03-26] MEDS: dexAMETHasone**PF** 10 MG/ML VIAL IV SCH (05:54)
[2024-03-26] MEDS: GABAPENTIN 300 MG CAP PO SCH (05:54)
[2024-03-26] MEDS: LR 60ML/HR IV SCH (05:55)
[2024-03-26] MEDS: LR 500ML BOLUS, THEN 15ML/HR IV SCH (05:55)
[2024-03-26] MEDS ORDERED: BUPIVACAINE 0.5 % 5 MG/1 ML PF 10ML VIAL ONE (06:24)
[2024-03-26] MEDS ORDERED: BUPIVACAINE 0.25% PF 30 ML VIAL ONE (06:24)
--- NOTE | 2024-03-26 06:33 | History & Physical Bridge Note ---
Date of Service March 26, 2024 History & Physical Bridge Note I have examined the patient, reviewed the History & Physical and in the interval since the performance of the History & Physical I have noted the following changes of clinical significance: no changes noted
[2024-03-26] MEDS ORDERED: PROPOFOL IV EMULSION 10 MG/ML 20 ML VIAL IV ONE (06:36)
[2024-03-26] MEDS ORDERED: LIDOCAINE 2% 2 ML VIAL/AMP(20MG/ML) INFIL ONE (06:36)
[2024-03-26] MEDS ORDERED: DEXAMETHASONE SOD INJ 4 MG/ML VIAL ONE (06:36)
[2024-03-26] MEDS ORDERED: ONDANSETRON INJ 2 MG/ML 2 ML VIAL ONE (06:36)
[2024-03-26] MEDS ORDERED: MIDAZOLAM HCL 1 MG/ML 2ML VIAL ONE (06:37)
[2024-03-26] MEDS ORDERED: fentaNYL citrate PF 100 MCG/2 ML VIAL ONE (06:37)
[2024-03-26] MEDS: TRANEXAMIC ACID 1,000 MG **IV Pre-op IV SCH (06:45)
[2024-03-26] MEDS ORDERED: PHENYLEPHRINE HCL 10 MG/ML VIAL ONE (07:18)
[2024-03-26] MEDS: ROPIV 0.5% 246mg, Ketorolac 30mg, EPINEPHrine 0.5mg in NSS INFIL SCH (07:56)
--- NOTE | 2024-03-26 08:08 | Operative Report ---
PG Post Operative Report Pre & Post Diagnosis Operation Date: 03/26/24 07:00 Pre-Op Diagnosis: Left Knee Arthritis Post-Op Diagnosis: Left Knee Arthritis I identified the patient and participated in the time-out.: Yes Procedure Operation Date: 03/26/24 07:00 Actual Procedures p Left Total Knee Arthroplasty(Left) - Edmundo Osborne DO Surgeon Edmundo Osborne DO Pest Control Applicator Rory Mcguire PA-C Estimated Blood Loss 50 Findings Consistent with Post-Op Diagnosis Specimens Left femoral and tibial bone Description of Procedure Implants used: I used a Rogelio Persona total knee arthroplasty system with a size 8 standard CR femur, E tibia, 34 oval patella, and a size 14 medial congruent polyethylene bearing. All components were cemented in place with Biomet cement. Darshan arrived [facility] for the above procedure. He was seen in the preoperative holding area and the operative extremity was identified and signed. He was given a preoperative antibiotic, TXA, a spinal anesthetic and an adductor nerve block. He was taken back to the operating room and laid on the table in supine position. He was given basic sedation. The operative knee was then prepped and draped in sterile fashion. A timeout was done, and the patient and the operative extremity was properly identified. A midline incision was made directly over the patella. Dissection was taken down to the extensor mechanism. A medial parapatellar arthrotomy was used. The medial retinaculum was released and the fat pad was mostly excised. The knee was flexed and the ACL, PCL, and meniscus were removed. A drill was sent down the center of the femoral canal followed by an intramedullary gera. Off that gera a distal femoral cutting block was placed. 9 mm was resected off the distal femur at 5 of valgus. A posterior referencing AP sizing guide was then placed on the distal femur. The femur measured to be a size 8. 2 drill holes were placed in 3 of external rotation. A 4-in-1 cutting block was then impacted into place. Anterior, posterior, and chamfer cuts were then made. The proximal tibia was then exposed. An external tibial alignment guide was placed. A tibial cut guide was then anchored in place and the proximal tibia was then resected. The posterior aspect of the knee was then opened up and any additional meniscus fragments and osteophytes were removed. The tibia measured to be a size E. The tibial plate was then placed in the appropriate rotation and the tibia was drilled and punched. Trial components were then placed. I used a size 14 medial congruent polyethylene insert. The knee was brought through a full range of motion and felt to be stable. The peg holes for the femoral component were then drilled. The patella was then everted and 9 mm was resected off the posterior aspect of the patella. The patella measured to be a size 34 oval. 3 peg holes were then drilled. A trial patella was placed. The knee was once again brought through a full range of motion and felt to be stable. Trial components were then removed. The surrounding soft tissues were injected with 100 cc of an orthopedic pain control cocktail. All components were then cemented into place with Biomet cement. The final polyethylene insert was then snapped into place. Once cement was dry the tourniquet was deflated. Hemostasis was obtained. A dilute betadyne lavage was then done for 3 minutes. The joint was then irrigated with normal saline solution. The medial parapatellar arthrotomy was then closed with #1 Vicryl suture. The skin was closed with 2-0 Vicryl, 3-0V lock suture, and efra. A soft compressive dressing was placed. He was then transferred to a hospital bed and taken to the postanesthesia care unit in stable condition. He tolerated the procedure well. Rory Mcguire PA-C, was present for the entire procedure. He was critical for patient positioning, prepping, draping, retraction exposure, wound closure and application of sterile dressing. I attest to the content of the Intraoperative Record and any orders documented therein. Any exceptions are noted below.
--- NOTE | 2024-03-26 08:56 | XRay Report ---
XR knee LT 1 or 2V routine CLINICAL HISTORY: Surgical Post Op COMPARISON: None FINDINGS: Left knee prosthesis shows no hardware complication. There is expected soft tissue gas. Sk in efra are present. IMPRESSION: Unremarkable postoperative exam. ACT 112: Negative or not required by law. Electronically signed by: James Choudhary M.D. 03/26/2024 8:55 AM
--- NOTE | 2024-03-26 09:14 | Anesthesiology Progress Note ---
Date of Service March 26, 2024 Anesthesia Post Procedure Vital Signs Vital Signs: Temp Pulse Pulse Resp BP Pulse Ox O2 Del Method 03/26/24 09:00 67 20 144/80 H 97 Nasal Cannula 03/26/24 08:50 36.4 C L 78 23 138/86 90 Room Air 03/26/24 08:40 68 20 135/73 99 Oxymask 03/26/24 08:29 36.3 C L 77 20 133/79 99 Oxymask 03/26/24 05:20 36.6 C 65 18 160/93 H 98 Room Air O2 Flow Rate 03/26/24 09:00 2 03/26/24 08:50 03/26/24 08:40 2 03/26/24 08:29 4 03/26/24 05:20 Transfer of Care Handoff Completed per policy Notes Mental Status: alert / awake / arousable Patient Amnestic to Procedure: Yes Nausea / Vomiting: adequately controlled Pain: adequately controlled Airway Patency, RR, SpO2: stable & adequate BP & HR: stable & adequate Hydration State: stable & adequate Neuraxial Anesthesia: was administered and sensory block is resolving Anesthetic Complications: no major complications apparent and Pt Satisfied with anesthetic care
[2024-03-26] MEDS ORDERED: NALOXONE HCL 0.4 MG/1 ML VIAL/CARP IV PRN (09:37)
[2024-03-26] MEDS ORDERED: oxyCODONE HCL IR 5 MG TAB (IMMEDIATE RELEASE) PO PRN (09:37)
[2024-03-26] MEDS ORDERED: HYDROmorphone INJ 0.5 MG/0.5 ML SYR IV PRN (09:37)
[2024-03-26] MEDS ORDERED: MAGNESIUM HYDROXIDE SUSP 30 ML UDC PO PRN (09:37)
[2024-03-26] MEDS ORDERED: METOCLOPRAMIDE HCL INJ 5 MG/ML 2 ML VIAL IV PRN (09:37)
[2024-03-26] MEDS ORDERED: bisacodyL 10 MG SUPP PR PRN (09:37)
[2024-03-26] MEDS: ceFAZolin 2000MG 2,000 MG/15 ML SYR IV SCH ×2 (09:41→11:38)
[2024-03-26] MEDS: TRANEXAMIC ACID 1,000 MG **IV Intra-op IV SCH (09:41)
[2024-03-26] MEDS: ORTHO JOINT ANESTHETIC ONE (09:43)
[2024-03-26] MEDS: METOPROLOL SUCC 50MG EXT REL TAB PO SCH (10:39)
[2024-03-26] MEDS: levETIRAcetam 500 MG TAB PO SCH ×2 (10:39→21:33)
[2024-03-26] MEDS: DOCUSATE SODIUM 100 MG CAP PO SCH (10:45)
[2024-03-26] MEDS: MULTIVITAMIN TAB PO SCH (10:45)
[2024-03-26] MEDS: KETOROLAC TROMETHAMINE 15 MG/ML VIAL IV SCH (10:46)
[2024-03-26] MEDS: ASPIRIN 81 MG ECTAB PO SCH (21:32)
[2024-03-26] MEDS: SIMVASTATIN 20 MG TAB PO SCH (21:32)
[2024-03-26] MEDS: SENNA 8.6 MG TAB PO SCH (21:33)
[2024-03-27] MEDS: LEVOTHYROXINE SODIUM 112 MCG TABLET PO SCH (05:09)
[2024-03-27 08:01] VITALS: BP 162/78; PULSE 71; RESP 18; TEMP 97.7; O2SAT 98
[2024-03-27] MEDS: dexAMETHasone 4 MG TAB PO SCH (09:39)
[2024-03-27] MEDS: METOPROLOL SUCC 50MG EXT REL TAB PO SCH (09:39)
--- NOTE | 2024-03-27 12:17 | Orthopedic Progress Note ---
Date of Service March 27, 2024 Assessment & Plan (1) Status post left knee replacement: Assessment: Status post left total knee arthroplasty. Plan: Overall, he is doing quite well today with good pain control to the left knee. He will work with physical therapy later this morning to work on ambulation and range of motion exercises. He is on aspirin for DVT prophylaxis. He can be discharged later this morning pending formal physical therapy evaluation and recommendations. His dressings can be changed prior to discharged today. Prescriptions were sent to pharmacy with clear instructions with verbal acknowledgment. He will follow-up with orthopedics in 2 weeks for continued postoperative management or sooner if needed. He verbalized understanding and agrees with this plan. Subjective . Darshan was seen this morning resting comfortably in no apparent distress. He notes that his pain is well-controlled to the left knee today. He has been up and out of bed with no significant issues today. He has yet to work with physical therapy this morning. He denies any concerns with surgical incision site. Denies any active bleeding, discharge, or signs of infection. He denies any other concerns today. Review of Systems All systems reviewed & are unremarkable except as noted in HPI & below. Physical Exam . On physical examination of the left knee, dressings are clean, dry, intact no signs of active bleeding, discharge, or signs of infection. His leg is out in full extension. He has slight tenderness to palpation adjacent to the surgical site. He has limited range of motion secondary to postoperative stiffness soreness. Calf soft nontender to palpation. Negative Homans' sign. Intact plantarflexion dorsiflexion of left ankle. +2 DP and PT pulses. Less than 2- second capillary refill. Normal sensation. Neurovascular intact. Results & Data Results & Data Laboratory Results . Diagnostic Findings . Knee X-Ray 03/26/24 08:30 XR knee LT 1 or 2V routine CLINICAL HISTORY: Surgical Post Op COMPARISON: None FINDINGS: Left knee prosthesis shows no hardware complication. There is expected soft tissue gas. Skin efra are present. IMPRESSION: Unremarkable postoperative exam. ACT 112: Negative or not required by law. Electronically signed by: James Choudhary M.D. 03/26/2024 8:55 AM PG Care Time/CCT Total # of Minutes Spent Total Time Spent with Patient: Total time spent is greater than 50% in coordination of care (as documented) at patient's floor/unit and/or counseling patient: Coding Level of Care Code 21489 Post Operative Follow-Up Diagnoses Status post left knee replacement Z96.652
--- NOTE | 2024-03-27 12:19 | Discharge Summary ---
Date of Service March 27, 2024 Admission HPI (Per Admitting) Darshan is a pleasant 68-year-old male who has been dealing with chronic increasing left knee pain. X-rays and clinical examination been diagnostic for advanced osteoarthritis of the left knee. After failed conservative treatment, he has elected to proceed with a left total knee arthroplasty. Admission Exam (Per Admitting) On physical exam the left knee, he has a slight varus formerly. Tenderness palpation of the distal medial femoral condyle and over the medial joint line.. Principal Diagnosis Same as "Discharge Diagnosis" noted below under Discharge Instructions. Discharge Exam . On physical examination of the left knee, dressings are clean, dry, intact no signs of active bleeding, discharge, or signs of infection. His leg is out in full extension. He has slight tenderness to palpation adjacent to the surgical site. He has limited range of motion secondary to postoperative stiffness soreness. Calf soft nontender to palpation. Negative Homans' sign. Intact plantarflexion dorsiflexion of left ankle. +2 DP and PT pulses. Less than 2- second capillary refill. Normal sensation. Neurovascular intact. Discharge Data Procedures Performed Operation Date: 03/26/24 07:00 Actual Procedures p Left Total Knee Arthroplasty(Left) - Edmundo Osborne DO Ordered Studies 03/26/24 05:00 US - OR guided needle placemen Routine Hospital Course (1) Status post left knee replacement: On March 26, 2024 Darshan arrived at [facility] and underwent a left total knee arthroplasty performed by Dr. Osborne with no complications. He had a spinal anesthetic. Postoperatively, he was started on aspirin for DVT prophylaxis and transferred to the general orthopedic floor in stable condition. His hospital course was uneventful. On postoperative day #1, his vital signs were stable and his pain was well-controlled. He participated well physical therapy working on ambulation and range of motion exercises. He was then discharged home in stable condition. He will follow-up with orthopedics in 2 weeks for postoperative management or sooner if needed. PG Care Time/CCT Total # of Minutes Spent Total Time Spent with Patient: Total time spent is greater than 50% in coordination of care (as documented) at patient's floor/unit and/or counseling patient: Discharge Plan Discharge Items Patient Disposition: Home - Home Health Services Reason For Visit: Left Knee Arthritis Discharge Diagnosis: Same Activity: Per Instructions section Non-emergency contact: Surgeon Call non-emergency contact if: your temperature is above 101.5, your wound has increased redness, your wound has increased drainage and your wound pain has increased Follow-up/Referrals: Moon Burk MD [Primary Care Provider] - Diet: Regular Addtl Attending Provider Instructions: Activity and Therapy Recommendations: * If you are using [facility] then therapy will be provided at your home until they feel you have accomplished all of your goals. * If you are using [facility] then Physical Therapy will be provided until they feel you are ready to start Outpatient Physical Therapy. * If you are not using home therapy then Outpatient Physical Therapy should start about 3-5 days from your day of surgery. Therapy will last about 6-10 weeks * It is important not to put a pillow under your knee when you are relaxing or sleeping. It is just as important to make sure you are getting your knee perfectly straight as it is to regain your knee bend. * You were shown a series of exercises in the hospital. Do these exercises three times each day including the exercises you were shown in physical therapy. * Get up and walk several times each day. For the first four weeks, try not to stand or walk for more than one hour at a time. If you do stand or walk for more than one hour, you will not hurt anything, but your leg will likely swell. * As you feel comfortable, you may change from the walker or crutches to a cane and then to independent walking. Medications: * Narcotic You will likely be sent home from the hospital with a prescription for the narcotic pain medication that worked best throughout your stay. * Cefadroxil -take the antibiotic twice a day for 10 days to help prevent infection. * Aspirin Most patients will be required to take Aspirin 81mg twice a day for 6 weeks after surgery. This is obtained [id number] and a prescription is not necessary. * Other medications may be prescribed for specific circumstances. If you have any questions, please call the office at . * Resume previous home medications unless otherwise instructed TEDs/Elastic Stockings: The white elastic stockings help limit swelling and prevent blood clots from forming in your legs.~ The more you wear them, the more they work. Wear them for six weeks. Dressing Care: The dressing can be changed after physical therapy on postop day #1. Daily dry dressing changes for a few days, especially if the incision is still draining some. If the incision is not draining then you may leave the efra open to air. If there is a little bit of drainage or if the efar are getting stuck on your clothing then cover the incision with a dry dressing. The efra will be removed at your 2 week follow-up appointment. Showering: You may shower 5 days from the day of surgery as long as the incision is no longer draining. You may shower with the efra exposed. Let soapy water run over the efra and pat them dry. Do not scrub or soak the incision. Diet: You may resume your previous diet. Things To Watch For: * Drainage from the incision site that occurs more than one week after your surgery. * Increased redness at the incision site. * Fever above 102 degrees Fahrenheit. * Unusual chest pain or shortness of breath. * Call [facility] at with any of the above problems Follow-Up Visit: Follow-up with Dr. Osborne's office 2-3 weeks after your day of surgery. We will remove your efra and answer any questions. If you have any additional questions or concerns, Dr Osborne is usually in the office at the same time and will be available An appointment was probably scheduled when you signed-up for surgery in the office. If you have any questions call Office Instructions: More detailed instructions as well as Frequently Asked Questions were provided in a folder by our office when you signed-up for surgery. Please review these instructions when you get home. If you have any further questions or concerns, please feel free to call the office at [phone] Pending Studies at Discharge: No Stand-Alone Forms: My [facility] [employer], Smoking Cessation Medications and DC Order Prescriptions: New aspirin 81 mg Tablet,Delayed Release (Dr/Ec) 81 mg PO BID Qty: 0 0RF oxycodone 5 mg Tablet 5 mg PO Q6H PRN (Reason: pain) Qty: 30 0RF cefadroxil 500 mg capsule 500 mg PO BID 10 Days Qty: 20 0RF Continued alprazolam 0.5 mg tablet 0.5 mg PO DAILY PRN (Reason: before flying) Qty: 4 0RF levetiracetam 1,000 mg tablet 500 mg PO BID Qty: 90 1RF metoprolol succinate 50 mg tablet extended release 24 hr 50 mg PO QAM Qty: 90 1RF simvastatin 20 mg tablet 20 mg PO QPM Qty: 90 1RF Rx Instructions: TAKE IN EVENING acetaminophen [Tylenol Extra Strength] 500 mg Tablet 500 mg PO Q6H PRN (Reason: Pain) loratadine 10 mg Tablet 10 mg PO QAM levothyroxine 112 mcg tablet 112 mcg PO QAM Krames/Other Patient Handouts: DVT Post Op Prevention Admission Data Admit Date/Time: 03/26/24 08:30 Attending Provider: Edmundo Osborne Admit Provider: Edmundo Osborne Primary Care Provider: Moon Burk Other Interventions: Discharge Summary Assessment (RN) Last Done: 03/27/24 09:50
== END 2024-03-27 12:28 | disposition home health service (06) ==
LOC: ASU 05:04 → 3E 05:04